=== PATIENT | male | born 1985 | race Caucasian/White ===

== ENCOUNTER 2019-05-17 11:37 | Inpatient (IN) | payer SELFPAY ==
[2019-05-17 11:41] VITALS: BP 147/84; PULSE 123; RESP 18; TEMP 36.8; O2SAT 97; BMI 31.0
--- NOTE | 2019-05-17 11:52 | W.ED.PSYCH ---
HPI - Psych General: Chief Complaint: Psychiatric Symptoms Stated Complaint: AMARIS Time Seen by Provider: 05/17/19 11:52 Source: patient Mode of arrival: ambulatory Limitations: no limitations History of Present Illness: HPI Narrative: 34 yo Male presents to ED with complaint of psychiatric symptoms. PFSH ED PFSH: Statuses (acute, chronic, etc) shown below reflect problem list status as previously entered and may not be historically accurate Social History Smoking and tobacco status: current every day smoker Coding Level of Care Code ED Research Laboratory Specialist for Demetrio Jacinto
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
[2019-05-17] MEDS: LORazepam 1 mg Tablet PO (13:27)
--- NOTE | 2019-05-17 13:28 | PC.NURSE ---
Pt suddenly became agitated and began hitting the code button. I entered the room and deactivated the code. As I turned to leave the pt again, hit the code button. This time the patient kept hitting the button saying that he wanted to leave. At that point, Pantera entered the room. The pt became even more agitated and ran to the corner of the room, yelling saying that he wanted to leave. Pantera asked the pt to remain claim and please stop hitting the code button. Pt ask to remain where he was upon which Pantera stated that he was fine to remain standing in the corner.
--- NOTE | 2019-05-17 13:30 | PC.NURSE ---
hospital sitter at bedside
[2019-05-17 13:37] LABS: Basophils % 0.2 %; Eosinophils % 0.2 %; Hematocrit 39.6 % (42.0-52.0); Hemoglobin 13.1 g/dL (11.7-16.6); Lymphocytes # 1.6 10^3/uL (0.8-4.8); Lymphocytes % 28.2 %; Mean Corpuscular HGB Conc 33.1 g/dL (30.0-36.0); Mean Corpuscular Hemoglobin 29.2 pg (28.0-34.0); Mean Corpuscular Volume 88.4 fL (80-94); Mean Platelet Volume 9.9 fL (7.4-10.4); Monocytes # 0.3 10^3/uL (0.2-0.9); Monocytes % 4.9 %; Neutrophils # 3.8 10^3/uL (1.8-7.7); Neutrophils % 66.3 %; Nucleated Red Blood Cells % 0 %; Platelet Count 248 10^3/cmm (130-400); Red Blood Count 4.48 10^6/uL (4.1-5.3); Red Cell Distribution Width 11.9 % (12.1-15.1); White Blood Count 5.8 10^3/uL (4.0-10.0)
[2019-05-17 13:56] LABS: Add Urine Microscopic? YES; Bilirubin Urine Neg (NEGATIVE); Blood Urine 3+ (Negative); Glucose Urine UA Norm (Normal); Ketones Urine 1+ (Negative); Leukocyte Esterase Urine Negative (Negative); Nitrate Urine Negative (Negative); Protein Urine Trace (Negative); Urine Appearance SL Hazy (CLEAR); Urine Color Yellow (Yellow); Urobilinogen Urine Norm (Negative)
[2019-05-17 14:06] LABS: Anion Gap 17.9 (5-19); Blood Urea Nitrogen 18 mg/dL (6-20); Calcium 10.4 mg/Dl (8.6-10.0); Carbon Dioxide 22 mmol/L (22-29); Chloride 101 mmol/L (98-107); Glomerular Filtration Rate 156.1 mL/min (90-130); Glucose 111 mg/dL (74-109); Potassium 3.9 mmol/L (3.5-5.1); Sodium 137 mmol/L (136-145); Thyroid Stimulating Hormone 1.32 uIU/mL (0.27-4.20)
[2019-05-17 14:10] LABS: Add Urine Culture? No; Bacteria Urine TRACE; Calcium Oxalate Crystals Urine 40-55 /hpf
[2019-05-17 14:13] LABS: Acetaminophen < 5.0 ug/mL (10-30); Alcohol Level < 10 mg/dL (0-10); Salicylate < 0.3 mg/dL (3-10)
[2019-05-17 14:14] LABS: Barbiturates Screen Urine Negative (Negative); Benzodiazepines Screen Urine Negative (Negative); Cocaine Screen Urine Negative (Negative); PCP Screen Urine Negative (Negative); THC Screen Urine Positive (Negative)
[2019-05-17 14:15] LABS: Amphetamines Screen Urine Positive (Negative)
[2019-05-17] MEDS: nicotine 21 mg Patch 1 PATCH TRANSDERMA (14:28)
[2019-05-17] MEDS: LORazepam 0.5 mg Tablet PO (15:13)
[2019-05-17 16:47] VITALS: BP 110/68; PULSE 98; O2SAT 95
--- NOTE | 2019-05-17 17:33 | PC.NURSE ---
Addendum entered by Devin Smith RN 05/18/19 09:31: Pt placed on restraint bed and transferred to NPU. Original Note: incident occurred on way to NPU. see event reports in paper charts
[2019-05-17] MEDS: LORazepam 2 mg/mL INJ 1 mL (19:21)
[2019-05-17] MEDS: ziprasidone 20 mg/mL SDV (19:22)
--- NOTE | 2019-05-17 19:59 | PC.NURSE ---
Nurse wants to wait for vitals to be done in the morning of 05/18/19.
[2019-05-18] MEDS: nicotine 2 mg Gum BUCCAL ×3 (04:18→12:07)
[2019-05-18 06:25] VITALS: BP 121/79; PULSE 78; RESP 20; TEMP 36.7; O2SAT 100
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
[2019-05-18] MEDS: OLANZapine ODT 5 MG TABLET PO (12:42)
[2019-05-18] MEDS: hyDROXYzine 25 mg Capsule 50 MG PO (12:42)
--- NOTE | 2019-05-18 12:46 | PC.NURSE ---
Addendum entered by Autumn Darling LPN 05/19/19 08:03: late entry 05/18/19 @ 9620 prn meds effective no further c/o anxiety/agitation. pt resting calmly in bed in room Original Note: PRN VISTARIL & ZYPREXA ZYDIS VISTARIL 50 MG GIVEN PO PER PT C/O ANXIETY. ZYPREXA ZYDIS 5 MG GIVEN PO PER PT C/O ANXIETY/AGITATION. COMPLIANT WITH MED ADMINISTRATION. HANDOUT ABOUT MEDS GIVEN TO PT PER PT REQUEST. WILL CONT TO MONITOR.
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
[2019-05-18 14:03] VITALS: BP 139/94; PULSE 120; RESP 20; TEMP 36.8; O2SAT 96
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
--- NOTE | 2019-05-18 15:32 | PC.SOCIAL ---
Per request of patient letter verifying his hospitalization was faxed to his public defenders office in [place], [place]. Contact there is Dolores White LCSW (P) [phone] (F) [phone]. Patient review letter prior to it being sent and verified release form sent by public defenders office.
[2019-05-18 20:47] VITALS: BP 115/69; PULSE 110; RESP 20; TEMP 36.8; O2SAT 97
[2019-05-19 06:00] VITALS: BP 131/79; PULSE 97; RESP 21; TEMP 36.6; O2SAT 98
--- NOTE | 2019-05-19 09:53 | PM.NPN ---
Subjective NPU Subjective: Interval history: Stephen presents today fairly emotional and upset after his conversation with his father. He reports that he is aware that he doesn't really have an option in regards to going to [place] turning himself in inserting his sentence but he is still struggling with how unfair he feels the process has been. There is a fairly lengthy discussion about the past 2 except since in situations like this in him taking control of the things that he can't control in managing the other things as best he can. Spoke with his father and he needs to follow through on this commitment or the legal ramifications will be stiff and significant. His piercing machine operator wants to have a telephone or video conference with them on Wednesday and we agreed that we would make that happen. Mental Status Exam MSE Comments: This is an obese white male with adequate dress, grooming and eye contact. No abnormal movements except for psychomotor retardation. Cooperative with exam in mild distress. Speech was decreased in rate and volume. Mood described as sad affect congruent. Thought process organized. Thought content: Patient denies suicidal or homicidal ideations, there were no delusions reported or noted, he denies any auditory or visual hallucinations. Attention and concentration were intact and memory was mostly reliable but none were formally tested. He is alert and oriented x3. Insight and judgment are improving. Vitals/I&O/Wt Last Vital Signs Temp 98.4 F 05/20/19 06:00 Pulse 90 05/20/19 06:00 Resp 18 05/20/19 06:00 BP 126/87 05/20/19 06:00 Pulse Ox 98 05/20/19 06:00 A&P Additional A&P Information Additional A&P Information: This is a 34-year-old white male with an endorsed psychiatric history consistent with ADHD but also reports of bipolar disorder who presents with a UDS positive for multiple drugs including amphetamine with thoughts of running off in hopes of avoiding his legal peril. 1. Continue current medication. Except: 2. Consider Lexapro for depression 3. Encourage individual group and milieu therapy. 4. Continue to 15-minute checks for safety. 5. Encourage discharge to court system to manage his responsibilities. 6. We will work to identify the whereabouts of the weapon prior to discharge. Involuntary Hold Information 96 Hour Hold: 96 Hour Involuntary Admission: Yes 96 Hour Hold Ending Date: 05/23/19 96 Hour Hold Ending Time: 17:00 Attestations NPU Medical Necessity Statement*: Inpatient hospitalization is medically necessary and the clinically appropriate intervention at this time. We will initiate and monitor medications and titrate to effect. Likely length of stay 3-5 days. Coding Level of Care Code Acute Manufacture Specialist for Demetrio Jacinto
[2019-05-19 14:00] VITALS: BP 147/93; PULSE 99; RESP 18; TEMP 36.7; O2SAT 99
[2019-05-19] MEDS: lithium carbonate 300 mg Capsule PO (17:12)
[2019-05-19 19:55] VITALS: BP 149/94; PULSE 96; RESP 17; TEMP 36.9; O2SAT 100
[2019-05-19 20:04] LABS: Free T4 Free Thyroxine 1.37 ng/dL (0.82-1.77); Thyroid Stimulating Hormone 1.25 uIU/mL (0.27-4.20)
[2019-05-20 06:00] VITALS: BP 126/87; PULSE 90; RESP 18; TEMP 36.9; O2SAT 98
[2019-05-20] MEDS: lithium carbonate 300 mg Capsule PO ×2 (09:03→17:02)
--- NOTE | 2019-05-20 10:01 | P.PN_ITS ---
Subjective NPU Subjective: Interval history: And presents today reporting greater insight into his situation and reporting a plan to follow through with his outdoor adventure instructor and father's recommendation that he go to [place] and turn himself in. It is unclear whether some of his presentation is malingering in nature or not however he has moments where he is categorically different than he is at other times. Most days while he is on the unit I seen him at least twice and there are times where he is behaving absolutely normal and other times where he is behaving bizarre. Today we had a normal contact later in the day with earlier in the day he was talking about people stealing his cigarettes, that the patients had gone off to [facility] last night etc. When I challenged the accuracy of his surgeons he then started talking about having vivid dreams and may be he had dreamt it. He reports that he sleeping okay and eating fine and reports that his hip seems to be feeling that her since the antibiotic. Mental Status Exam MSE Comments: This is an obese white male with adequate dress, grooming and eye contact. No abnormal movements except for psychomotor retardation. Cooperative with exam in mild distress. Speech was normal to increased in rate and volume. Mood described as better affect odd. Thought process organized. Thought content: Patient denies suicidal or homicidal ideations, there were no delusions reported or noted, he denies any auditory or visual hallucinations. Attention and concentration were intact and memory was mostly reliable but none were formally tested. He is alert and oriented x3. Insight and judgment are improving. Vitals/I&O/Wt Last Vital Signs Temp 98.4 F 05/20/19 06:00 Pulse 90 05/20/19 06:00 Resp 18 05/20/19 06:00 BP 126/87 05/20/19 06:00 Pulse Ox 98 05/20/19 06:00 A&P Additional A&P Information Additional A&P Information: This is a 34-year-old white male with an endorsed psychiatric history consistent with ADHD but also reports of bipolar disorder who presents with a UDS positive for multiple drugs including amphetamine with thoughts of running off in hopes of avoiding his legal peril. 1. Continue current medication. Except: 2. Consider Lexapro for depression or possibly Abilify for this questionable psychosis. 3. Encourage individual group and milieu therapy. 4. Continue to 15-minute checks for safety. 5. Encourage discharge to court system to manage his responsibilities. 6. We will work to identify the whereabouts of the weapon prior to discharge. Involuntary Hold Information 2 96 Hour Hold: 96 Hour Involuntary Admission: Yes 96 Hour Hold Ending Date: 05/23/19 96 Hour Hold Ending Time: 17:00 Attestations NPU Medical Necessity Statement*: Inpatient hospitalization is medically necessary and the clinically appropriate intervention at this time. We will initiate and monitor medications and titrate to effect. Likely length of stay 2-4 days. Coding Level of Care Code Acute Elementary Summer School Teacher for Demetrio Jacinto
[2019-05-20] MEDS: nicotine 2 mg Gum BUCCAL (11:20)
[2019-05-20] MEDS: hyDROXYzine 25 mg Capsule 50 MG PO (13:42)
--- NOTE | 2019-05-20 13:44 | PC.NURSE ---
PT TOLD STAFF THAT HE WAS FEELING ANXIOUS AND ASKED FOR MEDICATION FOR ANXIETY. ADMINISTERED VISTARIL 50 MG PO. WILL CONT TO MONITOR AND FOLLOW UP NEEDED
[2019-05-20 13:52] VITALS: BP 147/94; PULSE 100; RESP 20; TEMP 37.1; O2SAT 97
[2019-05-20 19:41] VITALS: BP 133/96; PULSE 130; RESP 21; TEMP 36.8; O2SAT 98
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
[2019-05-21] MEDS: haloperidol inj 5 mg/mL INJ 1 mL IM (00:28)
[2019-05-21] MEDS: diphenhydrAMINE 50 mg/mL SDV 1mL IM ×2 (00:29→01:13)
[2019-05-21] MEDS: LORazepam 2 mg/mL INJ 1 mL IM (00:30)
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
--- NOTE | 2019-05-21 01:36 | PC.NURSE ---
At approximately 0015 on 05/21/2019. Patient showing signs of increased paranoia and delusions. Patient walked to vending machine and hit machine and linen closet. Erratic behavior continues to escalate. Peter from [facility] and warehouse associate [place] present to assist in administration of intramuscular medications.This card writer hand administered Ativan 2mg /Haldol 5mg IM to patients right deltoid. Shawanda Bond LPN
[2019-05-21] MEDS: lithium carbonate 300 mg Capsule PO ×2 (09:19→17:10)
[2019-05-21] MEDS: hyDROXYzine 25 mg Capsule 50 MG PO (09:19)
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
[2019-05-21 14:00] VITALS: BP 133/96; RESP 21; TEMP 36.8; O2SAT 98
--- NOTE | 2019-05-21 14:22 | P.PN_ITS ---
Subjective NPU Subjective: Interval history: Stephen presents today reporting concerns that somehow the treatment team is sending medications to prevent to influence his behavior. At this point I concerns of this is somewhat manipulative behavior. He is otherwise tolerating the medication and denying any issues. He continues to endorse a plan to go to senior living as he has been advised to do and is supposed to be talking to his customer sales consultant tomorrow and he is open. He continues to have a very testing though relationship with his father for reasons that are unclear. He reports that his leg is feeling better since he had the injection/antibiotic.. Mental Status Exam MSE Comments: This is an obese white male with adequate dress, grooming and eye contact. No abnormal movements except for psychomotor retardation. Cooperative with exam in mild distress. Speech was normal to increased in rate and volume. Mood described as better affect odd. Thought process organized. Thought content: Patient denies suicidal or homicidal ideations, there were no delusions reported or noted, he denies any auditory or visual hallucinations. Attention and concentration were intact and memory was mostly reliable but none were formally tested. He is alert and oriented x3. Insight and judgment are improving. Vitals/I&O/Wt Last Vital Signs Temp 98.3 F 05/20/19 19:41 Pulse 130 H 05/20/19 19:41 Resp 21 H 05/20/19 19:41 BP 133/96 05/20/19 19:41 Pulse Ox 98 05/20/19 19:41 Weight last 48 hrs Weight 95.345 kg A&P Additional A&P Information Additional A&P Information: This is a 34-year-old white male with an endorsed psychiatric history consistent with ADHD but also reports of bipolar disorder who presents with a UDS positive for multiple drugs including amphetamine with thoughts of running off in hopes of avoiding his legal peril. 1. Continue current medication. Except: 2. Encourage individual group and milieu therapy. 3. Continue to 15-minute checks for safety. 4. Encourage discharge to court system to manage his responsibilities. Reported plan to talk to customer sales consultant tomorrow.. 5. Father reports the weapon issue was managed. Involuntary Hold Information 96 Hour Hold: 96 Hour Involuntary Admission: Yes 96 Hour Hold Ending Date: 05/23/19 96 Hour Hold Ending Time: 17:00 Attestations NPU Medical Necessity Statement*: Inpatient hospitalization is medically necessary and the clinically appropriate intervention at this time. We will initiate and monitor medications and titrate to effect. Definitive plan for discharge on Wednesday based on dad's work schedule to drive out to [place]. Likely length of stay 1-2 days. Coding Level of Care Code Acute Window Draper for Demetrio Jacinto
[2019-05-21 14:49] VITALS: BP 110/78; PULSE 100; RESP 20; TEMP 36.7; O2SAT 100
[2019-05-21 20:01] VITALS: BP 122/65; PULSE 87; RESP 17; TEMP 36.8; O2SAT 99
[2019-05-22] MEDS: trazodone 50 mg Tablet PO (00:26)
[2019-05-22 06:00] VITALS: BP 116/77; PULSE 77; RESP 17; TEMP 36.7; O2SAT 98
[2019-05-22] MEDS: lithium carbonate 300 mg Capsule PO ×2 (09:22→17:13)
[2019-05-22 14:00] VITALS: BP 119/88; PULSE 93; RESP 20; TEMP 36.8; O2SAT 99
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
[2019-05-22 16:55] VITALS: BP 119/88; PULSE 93; TEMP 36.8; O2SAT 93
== END 2019-05-22 18:53 | disposition home or self-care (01) | DRG 885 ==
LOC: ER 14:22 → NP 15:12
PROVIDERS: Admitting Provider Psychiatry & Neurology Psychiatry; Emergency Provider Family Medicine; Visit Provider Psychiatry & Neurology Psychiatry
DX: F31.9 Bipolar disorder, unspecified (principal); R45.851 Suicidal ideations; F17.210 Nicotine dependence, cigarettes, uncomplicated
CPT/HCPCS: 12345; 36415; 80048; 80307; 81003; 84439; 84443; 85025; 96372; 99284; A9270; J1200; J1630; J2060; J3486

== ENCOUNTER 2021-01-04 07:50 | Inpatient (IN) | payer SELFPAY ==
[2021-01-04 07:52] VITALS: BP 149/103; PULSE 83; RESP 16; TEMP 36.9; O2SAT 98; BMI 28.4
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
[2021-01-04] MEDS: LORazepam 2 mg Tablet PO (08:05)
--- NOTE | 2021-01-04 08:05 | XRR_ITS ---
PROCEDURE INFORMATION: Exam: XR Right Elbow Exam date and time: 01/04/2021 8:05 AM Age: 35 years old Clinical indication: Pain; Elbow; Right; Additional info: Elbow pain TECHNIQUE: Imaging protocol: XR Right elbow. Views: 1 or 2 views. COMPARISON: No relevant prior studies available. FINDINGS: Bones/joints: Normal. Soft tissues: There is soft tissue swelling around the elbow especially dorsally. XR/XR elbow RT 2V [id number] IMPRESSION: Soft tissue swelling. No fracture seen.
--- NOTE | 2021-01-04 08:05 | XRR_ITS ---
PROCEDURE INFORMATION: Exam: XR Chest Exam date and time: 01/04/2021 8:05 AM Age: 35 years old Clinical indication: Other: Chest pain TECHNIQUE: Imaging protocol: XR of the chest. Views: 1 view. COMPARISON: No relevant prior studies available. FINDINGS: Lungs: Unremarkable. No consolidation. Pleural spaces: Unremarkable. No pleural effusion. No pneumothorax. Heart/Mediastinum: Unremarkable. No cardiomegaly. Bones/joints: Unremarkable. XR/XR chest 1V portable [id number] IMPRESSION: No acute findings.
[2021-01-04 08:11] VITALS: BP 149/103; PULSE 77; RESP 17; O2SAT 98
[2021-01-04 09:14] LABS: Basophils % 0.4 %; Eosinophils # 0.1 10^3/uL (0.0-0.8); Eosinophils % 1.9 %; Hematocrit 38.6 % (42.0-52.0); Hemoglobin 12.9 g/dL (11.7-16.6); Lymphocytes % 18.1 %; Mean Corpuscular HGB Conc 33.4 g/dL (30.0-36.0); Mean Corpuscular Hemoglobin 31.9 pg (28.0-34.0); Mean Corpuscular Volume 95.5 fl (80-94); Mean Platelet Volume 9.9 fL (7.4-10.4); Monocytes # 0.4 10^3/uL (0.2-0.9); Monocytes % 7.2 %; Neutrophils # 3.83 10^3/uL (1.8-7.7); Neutrophils % 72.2 %; Nucleated Red Blood Cells % 0 %; Platelet Count 230 10^3/cmm (130-400); Red Blood Count 4.04 10^6/uL (4.1-5.3); Red Cell Distribution Width 12.4 % (12.1-15.1); White Blood Count 5.3 10^3/uL (4.0-10.0)
[2021-01-04 09:32] LABS: Alanine Aminotransferase 61 U/L (0-41); Alkaline Phosphatase 109 IU/L (40-130); Anion Gap 14.8 (5-19); Aspartate Amino Transferase 43 U/L (0-40); Blood Urea Nitrogen 11 mg/dL (6-20); Calcium 9.3 mg/dL (8.5-10.5); Carbon Dioxide 26 mmol/L (22-29); Chloride 100 mmol/L (98-107); Globulin 3.1 g/dL (1.3-4.6); Glomerular Filtration Rate 111.3 mL/min (90-130); Glucose 120 mg/dL (65-115); Lipase 22 U/L (13-60); Osmolality Calculated 285 mOsm/kg (285-295); Potassium 3.8 mmol/L (3.5-5.1); Salicylate 5.9 mg/dL (3-10); Sodium 137 mmol/L (136-145); Total Bilirubin 0.6 mg/dL (0.15-1.2); Total Protein 7.1 g/dL (6.6-8.7)
[2021-01-04 09:44] LABS: Acetaminophen < 5.0 ug/mL (10-30)
[2021-01-04] MEDS: LORazepam 1 mg Tablet PO (10:25)
[2021-01-04 11:10] VITALS: BP 154/101; PULSE 84; RESP 18; TEMP 36.7; O2SAT 100
[2021-01-04] MEDS: nicotine 2 mg Gum BUCCAL ×2 (11:58→15:35)
[2021-01-04 14:00] VITALS: BP 136/93; PULSE 97; RESP 17; TEMP 36.6; O2SAT 96
[2021-01-04] MEDS: ziprasidone hcl 40 mg Capsule PO (15:34)
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
[2021-01-04 21:39] VITALS: BP 132/84; PULSE 85; RESP 18; TEMP 36.7; O2SAT 97
[2021-01-04] MEDS: quetiapine 100 mg Tablet PO (21:50)
[2021-01-04] MEDS: OLANZapine 5 mg ODT PO (23:24)
--- NOTE | 2021-01-04 23:24 | PC.NURSE ---
Patient up disoriented walking halls. This nurse redirected patient back to room and reoriented patient, Patient was upset about not having evaluation done and was given Geodon. Anxious affect and increasing agitation observed. Patient offered food and fluids. Zyprexa 5 mg po given for this.
--- NOTE | 2021-01-05 03:06 | PC.NURSE ---
01/05/2021 0002 Patient resting on left side with eyes closed. No distress observed.
[2021-01-05 06:00] VITALS: RESP 15; BMI 26.6
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
[2021-01-05] MEDS: lithium carbonate 300 mg Capsule 1200 MG PO (09:09)
[2021-01-05] MEDS: levothyroxine 75 mcg Tablet PO (09:09)
[2021-01-05] MEDS: acetaminophen 325 mg Tablet 650 MG PO ×2 (11:29→22:13)
[2021-01-05] MEDS: paliperidone ER 6 mg Tablet PO (11:29)
[2021-01-05 14:00] VITALS: RESP 16; TEMP 36.9
[2021-01-05 20:44] VITALS: BP 112/68; PULSE 93; RESP 15; TEMP 36.8; O2SAT 98
[2021-01-05] MEDS: quetiapine 100 mg Tablet PO (22:14)
[2021-01-05] MEDS: OLANZapine 5 mg ODT PO (22:14)
[2021-01-06 06:00] VITALS: BP 144/93; PULSE 130; RESP 18; TEMP 37.2; O2SAT 99
[2021-01-06] MEDS: levothyroxine 75 mcg Tablet PO (08:39)
[2021-01-06] MEDS: paliperidone ER 6 mg Tablet PO (08:40)
[2021-01-06] MEDS: lithium carbonate 300 mg Capsule 1200 MG PO (08:40)
[2021-01-06 11:01] LABS: Amphetamines Screen Urine Positive (Negative); Barbiturates Screen Urine Negative (Negative); Benzodiazepines Screen Urine Positive (Negative); Cocaine Screen Urine Negative (Negative); Opiate Screen Urine Negative (Negative); PCP Screen Urine Negative (Negative); THC Screen Urine Negative (Negative)
[2021-01-06] MEDS: hyDROXYzine 25 mg Capsule 50 MG PO (12:09)
[2021-01-06] MEDS: nicotine 2 mg Gum BUCCAL (12:09)
--- NOTE | 2021-01-06 12:09 | PC.NURSE ---
Addendum entered by Autumn Darling LPN 01/06/21 13:26: prn med effective no further c/o anxiety Original Note: PRN VISTARIL 50 MG GIVEN PO PER PT C/O ANXIETY, PT SPECIFICALLY ASKING FOR ATIVAN PRN VISTARIL OFFERED & PT AGREEABLE TO TAKE. WILL CONT TO MONITOR
[2021-01-06 14:00] VITALS: BP 144/93; PULSE 110; RESP 18; TEMP 37.2; O2SAT 99
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
--- NOTE | 2021-01-06 18:22 | PC.RESP ---
SMOKING CESSATION INFORMATION SENT TO PATIENT.
[2021-01-06 21:34] VITALS: BP 118/82; PULSE 74; RESP 20; TEMP 36.7; O2SAT 95
[2021-01-06] MEDS: OLANZapine 5 mg ODT PO (21:46)
[2021-01-06] MEDS: quetiapine 100 mg Tablet PO (21:47)
[2021-01-06] MEDS: trazodone 50 mg Tablet PO (21:47)
[2021-01-07 06:00] VITALS: BP 112/64; PULSE 79; RESP 17; TEMP 36.8; O2SAT 97
--- NOTE | 2021-01-07 08:59 | P.HP_ITS ---
Providers/Chief Complaint Admitting Physician: Jermaine Ceron MD Chief Complaint: PSYCH EVAL; LEFT ELBOW PAIN HPI NPU History of Present Illness Stephen Galicia is a 35 year old male who presented to the emergency department with the following report: Meds NPU Home Medications Medication Instructions Recorded Confirmed Last Taken Type levothyroxine 75 mcg PO DAILY 01/04/21 01/04/21 01/03/21 History lithium carbonate 1,200 mg PO DAILY 01/04/21 01/04/21 01/03/21 History quetiapine 100 mg PO BEDTIME 01/04/21 01/04/21 01/03/21 History Allergies Allergy/AdvReac Type Severity Reaction Status Date / Time cefaclor [From Ceclor] Allergy ALGY-Hives Verified 05/17/19 11:50 metformin Allergy ALGY-Hives Verified 05/17/19 11:50 PFSH NPU PFSH: Medical History (Updated 01/04/21 @ 08:06 by Adam Zacarias MD) History of bipolar disorder Mental health disorder Social History Smoking and tobacco status: current every day smoker Vitals/I&O/Wt Last Vital Signs Temp 98.2 F 01/07/21 06:00 Pulse 79 01/07/21 06:00 Resp 17 01/07/21 06:00 BP 112/64 01/07/21 06:00 Pulse Ox 97 01/07/21 06:00 Weight last 48 hrs Weight 88.178 kg Data NPU : 01/04/21 09:03 01/04/21 09:03 Involuntary Hold Information 96 Hour Hold: 96 Hour Involuntary Admission: Yes 96 Hour Hold Ending Date: 01/10/21 96 Hour Hold Ending Time: 00:01 Coding Level of Care Code Acute Trigonometry Tutor for Demetrio Jacinto
[2021-01-07] MEDS: levothyroxine 75 mcg Tablet PO (10:12)
[2021-01-07] MEDS: paliperidone ER 6 mg Tablet PO ×2 (10:12→21:43)
[2021-01-07] MEDS: lithium carbonate 300 mg Capsule 1200 MG PO (10:12)
[2021-01-07] MEDS: nicotine 2 mg Gum BUCCAL (10:12)
--- NOTE | 2021-01-07 12:16 | NPU.GN ---
[facility] Group Topic:Thought Processing General Mood of Group: The patient come to group willingly. The patient was on time, good hygiene and properly dressed. The group discussed how the mind thinks and discussed negative thoughts and how we process those negative thoughts. The patient did participate in the group. The patient were all gave a thought table to be able to list specific negative thoughts and were able to come up with different ways to cope with those thoughts. The group was able to go outside for fresh air, which in turn helped the group to open up more. Information about the NPU was discussed, information about the routine for NPU, the doctor and nursing staff as well as social work instructor and how they each play a part in their care while here. 96 hr holds and 21 day holds were also explained as well.
[2021-01-07 14:00] VITALS: BP 119/78; PULSE 60; RESP 16; TEMP 36.1; O2SAT 97
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
[2021-01-07 20:05] VITALS: BP 139/89; PULSE 83; RESP 18; TEMP 36.8; O2SAT 98
--- NOTE | 2021-01-07 20:16 | P.CONIM_ITS ---
Providers/Reason For Consult Consulting Physician/Specialty*: Frase/Hospitalist Reason for Consult*: right elbow pain Requesting Physician: Dr Arango Attending Physician: Vincent Arango MD History of Present Illness History of Present Illness Stephen Galicia is a 35 year old male admitted on January 05 to the neuropsychiatric unit. He has a history of schizophrenia and substance use and was experiencing acute psychosis, homicidal and suicidal ideation. He had evidently had a fall the day prior to admission and sustained injury to his right elbow. Imaging studies were done in the emergency room did not show any evidence of fracture. He continues to have bruising and swelling to the right elbow and complained of pain particularly when he tries to sleep and rolls over on that arm. Pain is mild by his description. He has good range of motion. Bruising has gotten worse over the last couple of days. At the olecranon process there is more swelling than had been there previously. Hospitalist were asked to evaluate. In addition to this he complained of a sore on his neck that was bothering him as well as a sore in his mid back. These have been present for a while. Review of Systems Const: Denies: fever(s) or chills Card: Denies: chest pain (Previous right-sided chest pain is resolved) GI: Denies: nausea or vomiting Musc: Reports: extremity pain (when trying to sleep on right arm primarily, lesser degree with movement) and extremity swelling (right arm); Denies: limited range of motion Skin/Breast: Reports: sores (x 2 on back, one at neck and one mid back) Psych: Reports: anxiety Servando/Lymph: Reports: other (bruising to right arm) Meds/Allergies Home Medications and Allergies Home Medications Medication Instructions Recorded Confirmed Last Taken Type levothyroxine 75 mcg PO DAILY 01/04/21 01/04/21 01/03/21 History lithium carbonate 1,200 mg PO DAILY 01/04/21 01/04/21 01/03/21 History quetiapine 100 mg PO BEDTIME 01/04/21 01/04/21 01/03/21 History Allergies Allergy/AdvReac Type Severity Reaction Status Date / Time cefaclor [From Ceclor] Allergy ALGY-Hives Verified 05/17/19 11:50 metformin Allergy ALGY-Hives Verified 05/17/19 11:50 Current Medications Current Medications Generic Name Dose Route Start Last Admin Trade Name Freq PRN Reason Stop Dose Admin Acetaminophen 650 mg 01/04/21 11:10 01/05/21 22:13 Acetaminophen 325 Mg Tablet PO 650 mg Q4H PRN Administration MILD PAIN Hydroxyzine Pamoate 50 mg 01/04/21 11:10 01/06/21 12:09 Hydroxyzine 25 Mg Capsule PO 50 mg Q6H PRN Administration ANXIETY Levothyroxine Sodium 75 mcg 01/05/21 09:00 01/07/21 10:12 Levothyroxine 75 Mcg Tablet PO 75 mcg DAILY BOBBI Administration [place] Carbonate 1,200 mg 01/05/21 09:00 01/07/21 10:12 [place] Carbonate 300 Mg Capsule PO 1,200 mg DAILY BOBBI Administration Nicotine Polacrilex 2 mg 01/04/21 11:10 01/07/21 10:12 Nicotine 2 Mg Gum BUCCAL 2 mg Q2H PRN Administration NICOTINE WITHDRAWAL Olanzapine 5 mg 01/04/21 11:10 01/06/21 21:46 Olanzapine 5 Mg Odt PO 5 mg Q4H PRN Administration Agitation/Psychosis Quetiapine Fumarate 100 mg 01/04/21 21:00 01/06/21 21:47 Quetiapine 100 Mg Tablet PO 100 mg BEDTIME BOBBI Administration Trazodone HCl 50 mg 01/04/21 11:10 01/06/21 21:47 Trazodone 50 Mg Tablet PO 50 mg BEDTIME PRN Administration SLEEP Ziprasidone 40 mg 01/04/21 14:22 01/04/21 15:34 Ziprasidone Hcl 40 Mg Capsule PO 40 mg BID PRN Administration ANXIETY PFSH Acute PFSH: Medical History (Updated 01/07/21 @ 20:35 by Radha Marquez MD) Chronic schizophrenia History of bipolar disorder Surgical History (Updated 01/07/21 @ 20:32 by Radha Marquez MD) No history of previous surgery Social History (Updated 01/07/21 @ 20:32 by Radha Marquez MD) Smoking and tobacco status: current every day smoker Alcohol intake: current Substance/Drug Use: current Vitals/I&O/Wt Last Vital Signs Temp 98.2 F 01/07/21 20:05 Pulse 83 01/07/21 20:05 Resp 18 01/07/21 20:05 BP 139/89 01/07/21 20:05 Pulse Ox 98 01/07/21 20:05 Weight last 48 hrs Weight 88.178 kg Physical Exam Narrative: EXAM NARRATIVE: Patient is awake and alert, cooperative. Not acutely ill-appearing. Right arm is swollen from distal humerus to mid forearm. Large bruising noted to the medial side of the elbow and to a lesser degree laterally over the olecranon process. He has pain at the ends of range of motion but really good range of motion with internal and external rotation, extension, flexion. There is some point tenderness over the olecranon bursa which is fluid-filled. No warmth or erythema. Also tender over the lateral epicondyle but again good range of motion. 2+ radial pulses in the right arm, able to make a complete handgrip. On his back he has approximately 7 mm diameter scabbed wound mid back with some mild underlying induration but no fluctuance or drainage. Does look to have a hair follicle in the center of this. No surrounding erythema. On his lower neck on the right side he has approximately 2 cm diameter area of induration with central fluctuance and 3 mm thinned area with visible purulence underneath it. Mild overlying erythema, without any streaks extending beyond the area of induration, tender to palpation. This area was cleaned and the central area was prepped with a 23- gauge needle and approximately 8 mL of purulent bloody material was expressed without difficulty. No significant odor. He had a remaining approximately 1- 1/2 cm area of induration after this procedure. Data Labs: Other Labs: Laboratory Results WBC 5.3 10^3/uL (4.0- 10.0) 01/04/21 09:03 RBC 4.04 10^6/uL (4.1 -5.3) L 01/04/21 09:03 Hgb 12.9 g/dL (11.7-1 6.6) 01/04/21 09:03 Hct 38.6 % (42.0-52.0 ) L 01/04/21 09:03 MCV 95.5 fl (80-94) H 01/04/21 09:03 MCH 31.9 pg (28.0-34. 0) 01/04/21 09:03 MCHC 33.4 g/dL (30.0-3 6.0) 01/04/21 09:03 RDW 12.4 % (12.1-15.1 ) 01/04/21 09:03 Plt Count 230 10^3/cmm (130 -400) 01/04/21 09:03 MPV 9.9 fL (7.4-10.4) 01/04/21 09:03 Neut % (Auto) 72.2 % 01/04/21 09:03 Lymph % (Auto) 18.1 % 01/04/21 09:03 Ashley % (Auto) 7.2 % 01/04/21 09:03 Eos % (Auto) 1.9 % 01/04/21 09:03 Baso % (Auto) 0.4 % 01/04/21 09:03 Neut # (Auto) 3.83 10^3/uL (1.8 -7.7) 01/04/21 09:03 Lymph # (Auto) 1.0 10^3/uL (0.8- 4.8) 01/04/21 09:03 Ashley # (Auto) 0.4 10^3/uL (0.2- 0.9) 01/04/21 09:03 Eos # (Auto) 0.1 10^3/uL (0.0- 0.8) 01/04/21 09:03 Baso # (Auto) 0.0 10^3/uL (0.0- 0.1) 01/04/21 09:03 Nucleated RBC % (a uto) 0 % 01/04/21 09:03 Nucleated RBCs # 0.0 /100WBC 01/04/21 09:03 Sodium 137 mmol/L (136-1 45) 01/04/21 09:03 Potassium 3.8 mmol/L (3.5-5 .1) 01/04/21 09:03 Chloride 100 mmol/L (98-10 7) 01/04/21 09:03 Carbon Dioxide 26 mmol/L (22-29) 01/04/21 09:03 Anion Gap 14.8 (5-19) 01/04/21 09:03 BUN 11 mg/dL (6-20) 01/04/21 09:03 Creatinine 0.8 mg/dL (0.7-1. 2) 01/04/21 09:03 GFR Calculation 111.3 mL/min (90- 130) 01/04/21 09:03 Glucose 120 mg/dL (65-115 ) H 01/04/21 09:03 Calculated Osmolal ity 285 mOsm/kg (285- 295) 01/04/21 09:03 Calcium 9.3 mg/dL (8.5-10 .5) 01/04/21 09:03 Total Bilirubin 0.6 mg/dL (0.15-1 .2) 01/04/21 09:03 AST 43 U/L (0-40) H 01/04/21 09:03 ALT 61 U/L (0-41) H 01/04/21 09:03 Alkaline Phosphata se 109 IU/L (40-130) 01/04/21 09:03 Total Protein 7.1 g/dL (6.6-8.7 ) 01/04/21 09:03 Albumin 4.0 g/dL (3.5-5.2 ) 01/04/21 09:03 Globulin 3.1 g/dL (1.3-4.6 ) 01/04/21 09:03 Lipase 22 U/L (13-60) 01/04/21 09:03 Salicylates 5.9 mg/dL (3-10) 01/04/21 09:03 Urine Opiates Scre en Negative ng/mL (N egative) 01/06/21 10:13 Acetaminophen < 5.0 ug/mL (10-3 0) L 01/04/21 09:03 Ur Barbiturates Sc reen Negative ng/mL (N egative) 01/06/21 10:13 Ur Phencyclidine S crn Negative ng/mL (N egative) 01/06/21 10:13 Ur Amphetamines Sc reen Positive ng/mL (N egative) H 01/06/21 10:13 U Benzodiazepines Scrn Positive ng/mL (N egative) H 01/06/21 10:13 Urine Cocaine Scre en Negative ng/mL (N egative) 01/06/21 10:13 U Marijuana (THC) Screen Negative ng/mL (N egative) 01/06/21 10:13 Impressions Chest X-Ray 01/04/21 08:05 IMPRESSION: No acute findings. Elbow X-Ray 01/04/21 08:05 IMPRESSION: Soft tissue swelling. No fracture seen. A&P Assessment and plan (1) Elbow swelling: Sustained from a fall prior to admission, x-rays at admission showed no evidence of fracture. He has bruising associated with this and has developed some fluid in the olecranon bursa. He maintains good range of motion and pain is mild by his description. There is no significant warmth or erythema at the joint. At this point in time recommend supportive care with ice or heat, whichever provides the most relief. He is on lithium so NSAID therapy is not ideal but if was agreeable from a psychiatric standpoint could consider a dose ibuprofen 400 mg at bedtime. Can continue Tylenol as needed. Encourage patient to continue range of motion exercises and notify staff if any worsening pain, swelling at the tip of the elbow, redness or warmth or significant limitation in range of motion. Status: Acute Qualifiers: Laterality: right Qualified Code(s): M25.421 - Effusion, right elbow (2) Boil of neck: This was opened with a needle and pus was expressed. Recommend triple antibiotic ointment to both this wound and the one in his mid back twice a day. We will give him a 7-day course of doxycycline. Status: Acute Additional A&P Information Appreciate opportunity to assist in patient's care We will follow for a day or 2 to ensure no worsening Have ordered a CBC for in the morning Please contact if any new symptoms, particularly any fever or musculoskeletal changes as described above Consult Attestations Medical Necessity Statement: as per psychiatry Procedures Procedure Narrative Drainage of purulence from the neck: Area of lower posterior neck was cleaned with alcohol wipes. 23 gauge needle w as inserted into small central area with visual purulence underneath. Approximately 8 ml pus was easily expressed from the area. Remains indurated 1.5 cm diameter around this opening. Covered with clean gauze and tegaderm. Patient was anxious but tolerated procedure well. Dressings applied were shown to him so he would know what is on his neck. Coding Level of Care Code Acute Forder Operator for Demetrio Jacinto Diagnoses Elbow swelling M25.421 Laterality: right Boil of neck L02.12
[2021-01-07] MEDS: hyDROXYzine 25 mg Capsule 50 MG PO (21:43)
[2021-01-07] MEDS: quetiapine 100 mg Tablet PO (21:43)
[2021-01-08 06:00] VITALS: BP 116/75; PULSE 70; RESP 17; TEMP 37.2; O2SAT 98
[2021-01-08 08:09] LABS: Basophils % 0.4 %; Eosinophils # 0.3 10^3/uL (0.0-0.8); Eosinophils % 5.3 %; Hematocrit 41.2 % (42.0-52.0); Hemoglobin 13.4 g/dL (11.7-16.6); Lymphocytes # 1.1 10^3/uL (0.8-4.8); Mean Corpuscular HGB Conc 32.5 g/dL (30.0-36.0); Mean Corpuscular Hemoglobin 31.5 pg (28.0-34.0); Mean Corpuscular Volume 96.7 fl (80-94); Mean Platelet Volume 10.2 fL (7.4-10.4); Monocytes # 0.4 10^3/uL (0.2-0.9); Monocytes % 7.9 %; Neutrophils # 3.44 10^3/uL (1.8-7.7); Nucleated Red Blood Cells % 0 %; Platelet Count 204 10^3/cmm (130-400); Red Blood Count 4.26 10^6/uL (4.1-5.3); Red Cell Distribution Width 12.6 % (12.1-15.1); White Blood Count 5.3 10^3/uL (4.0-10.0)
[2021-01-08] MEDS: doxycycline 100 mg Tablet PO ×2 (09:11→17:37)
[2021-01-08] MEDS: nicotine 2 mg Gum BUCCAL ×2 (09:11→14:56)
[2021-01-08] MEDS: lithium carbonate 300 mg Capsule 1200 MG PO (09:11)
[2021-01-08] MEDS: paliperidone ER 6 mg Tablet 9 MG PO (09:12)
[2021-01-08] MEDS: levothyroxine 75 mcg Tablet PO (09:12)
[2021-01-08 14:00] VITALS: BP 126/82; PULSE 75; RESP 18; TEMP 37.2; O2SAT 98
[2021-01-08] MEDS: hyDROXYzine 25 mg Capsule 50 MG PO (14:54)
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
[2021-01-08] MEDS: neomycin-poly-bacitracin oint 28 gm 1 APPLIC TOPICAL (17:38)
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
[2021-01-08 20:42] VITALS: RESP 17
--- NOTE | 2021-01-08 21:00 | PC.NURSE ---
pt resting quietly with both eyes closed
[2021-01-08] MEDS: OLANZapine 5 mg ODT PO (21:06)
[2021-01-08] MEDS: quetiapine 100 mg Tablet PO (21:06)
--- NOTE | 2021-01-08 21:10 | PC.NURSE ---
pt requested to be given Zyprexa at HS, Zyprexa zydis 5mg po given.
--- NOTE | 2021-01-08 22:00 | PC.NURSE ---
pt resting quietly with both eyes closed
[2021-01-09 06:00] VITALS: BP 126/82; PULSE 75; RESP 17; TEMP 37.2; O2SAT 98
[2021-01-09] MEDS: nicotine 2 mg Gum BUCCAL (08:20)
[2021-01-09] MEDS: paliperidone ER 6 mg Tablet 9 MG PO (08:20)
[2021-01-09] MEDS: levothyroxine 75 mcg Tablet PO (08:20)
[2021-01-09] MEDS: lithium carbonate 300 mg Capsule 1200 MG PO (08:20)
[2021-01-09] MEDS: doxycycline 100 mg Tablet PO ×2 (08:21→17:23)
[2021-01-09 09:18] LABS: Basophils % 0.4 %; Eosinophils # 0.2 10^3/uL (0.0-0.8); Eosinophils % 5.2 %; Hematocrit 40.3 % (42.0-52.0); Hemoglobin 13.3 g/dL (11.7-16.6); Mean Corpuscular Hemoglobin 31.9 pg (28.0-34.0); Mean Corpuscular Volume 96.6 fl (80-94); Mean Platelet Volume 10.3 fL (7.4-10.4); Monocytes # 0.4 10^3/uL (0.2-0.9); Monocytes % 7.8 %; Neutrophils # 2.99 10^3/uL (1.8-7.7); Neutrophils % 64.6 %; Nucleated Red Blood Cells % 0 %; Platelet Count 191 10^3/cmm (130-400); Red Blood Count 4.17 10^6/uL (4.1-5.3); Red Cell Distribution Width 12.6 % (12.1-15.1); White Blood Count 4.6 10^3/uL (4.0-10.0)
[2021-01-09] MEDS: neomycin-poly-bacitracin oint 28 gm 1 APPLIC TOPICAL (10:17)
[2021-01-09 14:00] VITALS: BP 131/81; PULSE 91; RESP 18; TEMP 36.9; O2SAT 99
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
[2021-01-09] MEDS: quetiapine 100 mg Tablet PO (21:40)
[2021-01-09 22:00] VITALS: BP 131/81; PULSE 91; RESP 18; TEMP 36.9; O2SAT 99
--- NOTE | 2021-01-09 22:26 | PM.PN ---
Subjective Subjective: Interval history: He is doing quite well. Swelling is subsiding/resolving in the right arm/elbow. Bruising is resolving, yellowing in color. He is moving the arm well. No discomfort or swelling around the evacuated neck boil. Vitals/I&O/Wt Last Vital Signs Temp 98.4 F 01/09/21 22:00 Pulse 91 01/09/21 22:00 Resp 18 01/09/21 22:00 BP 131/81 01/09/21 22:00 Pulse Ox 99 01/09/21 22:00 Physical Exam Const: COMMON NORMALS: no acute distress and patient oriented x3 GENERAL APPEARANCE: cooperative ORIENTATION/CONSCIOUSNESS: Yes awake HENMT: COMMON NORMALS: oropharynx normal Neck/C-Spine: COMMON NORMALS: no JVD Resp: COMMON NORMALS: normal respiratory effort and clear to auscultation bilaterally AUSCULTATION: clear to auscultation bilaterally Cardio: COMMON NORMALS: no JVD, regular rhythm, S1 normal heart sound present, S2 normal heart sound present and No murmurs present (Cardio) RHYTHM: regular rhythm HEART SOUNDS: S1 normal heart sound present and S2 normal heart sound present GI: COMMON NORMALS: Normal to inspection, nondistended, normoactive bowel sounds present, Soft to palpation and non-tender PALPATION: Yes Soft to palpation Extremity: COMMON NORMALS: no joint enlargement and no pedal edema OTHER: Resolving swelling R elbow, bruising, no redness, warmth, moves/bends arm spontaneously Neuro: COMMON NORMALS: patient oriented x3 and moves all extremities Skin: COMMON NORMALS: no rashes or lesions noted GENERAL SKIN EXAM: no rashes or lesions noted Data : 01/09/21 08:59 01/04/21 09:03 Micro: Microbiology 01/08/21 17:05 Blood Culture - Preliminary Blood NEGATIVE TO DATE 01/08/21 17:02 Blood Culture - Preliminary Blood NEGATIVE TO DATE A&P Assessment and plan (1) Elbow swelling: Swelling is resolving. No growth on blood culture. Continue supportive care. Please have him follow-up with primary care provider after discharge for reassessment of resolution of symptoms. Discussed with him, he verbalized agreement and intention to follow-up. Understands to seek medical attention in case of any worsening of swelling, swelling any other joint, fever, or any other concerning symptoms that may suggest infection due to high risk of bloodstream infection. Encouraged him again against any IV drug use. Will be following up with [facility]. At this time will sign off, but please feel free to call with any questions, or reconsult for any additional issues. Status: Acute Qualifiers: Laterality: right Qualified Code(s): M25.421 - Effusion, right elbow (2) Boil of neck: Status post I&D. Doing very well. Complete on 7-day course of doxycycline. Status: Acute Attestations Medical Necessity Statement*: Continue further admission as per psychiatry. Coding Level of Care Code Acute Photogrammetric Surveyor for g Fwd Diagnoses Elbow swelling M25.421 Laterality: right Boil of neck L02.12
[2021-01-10 06:00] VITALS: BP 126/78; PULSE 80; RESP 16; TEMP 37.2; O2SAT 98
[2021-01-10] MEDS: lithium carbonate 300 mg Capsule 1200 MG PO (08:43)
[2021-01-10] MEDS: paliperidone ER 6 mg Tablet 9 MG PO (08:43)
[2021-01-10] MEDS: doxycycline 100 mg Tablet PO (08:43)
[2021-01-10] MEDS: paliperidone palmitate 234 mg Syringe IM (08:45)
[2021-01-10] MEDS: levothyroxine 75 mcg Tablet PO (08:45)
[2021-01-10 11:09] VITALS: BP 126/78; PULSE 80; RESP 16; TEMP 37.2; O2SAT 98
[2021-01-10 11:24] LABS: Basophils % 0.5 %; Eosinophils # 0.2 10^3/uL (0.0-0.8); Eosinophils % 5.4 %; Hematocrit 39.7 % (42.0-52.0); Hemoglobin 12.9 g/dL (11.7-16.6); Lymphocytes # 0.9 10^3/uL (0.8-4.8); Mean Corpuscular HGB Conc 32.5 g/dL (30.0-36.0); Mean Corpuscular Hemoglobin 31.7 pg (28.0-34.0); Mean Corpuscular Volume 97.5 fl (80-94); Mean Platelet Volume 10.8 fL (7.4-10.4); Monocytes # 0.4 10^3/uL (0.2-0.9); Monocytes % 8.4 %; Neutrophils # 2.86 10^3/uL (1.8-7.7); Neutrophils % 64.5 %; Nucleated Red Blood Cells % 0 %; Platelet Count 197 10^3/cmm (130-400); Red Blood Count 4.07 10^6/uL (4.1-5.3); Red Cell Distribution Width 12.6 % (12.1-15.1); White Blood Count 4.4 10^3/uL (4.0-10.0)
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
== END 2021-01-10 12:42 | disposition home or self-care (01) | DRG 885 ==
LOC: ER 08:46 → NP 11:21
PROVIDERS: Hospitalist; Internal Medicine; Admitting Provider Psychiatry & Neurology Psychiatry; Emergency Provider Emergency Medicine; Visit Provider Psychiatry & Neurology Child & Adolescent Psychiatry
DX: F20.9 Schizophrenia, unspecified (principal); R45.851 Suicidal ideations; F15.259 Other stimulant dependence with stimulant-induced psychotic disorder, unspecified; L02.12 Furuncle of neck; R45.850 Homicidal ideations; R07.9 Chest pain, unspecified; M25.421 Effusion, right elbow; M25.521 Pain in right elbow; W17.89XA Other fall from one level to another, initial encounter; F31.9 Bipolar disorder, unspecified; F17.210 Nicotine dependence, cigarettes, uncomplicated
CPT/HCPCS: 36415; 71045; 73070; 80053; 80306; 80307; 83690; 85025; 87040; 96372; 99285

== ENCOUNTER 2021-09-06 10:59 | Emergency (ER) | payer MEDICAID, SELFPAY ==
--- NOTE | 2021-09-06 11:04 | W.ED.GENADLT ---
Documented by User: Adam Zacarias MD 09/06/21 11:49 HPI - General Adult General: Chief complaint: Psychiatric Symptoms Stated complaint: BEHAVIORAL ISSUES Time Seen by Provider: 09/06/21 11:02 History of Present Illness: HPI: [36]yo patient w/ hx of bipolar disordr, schizophrenia BIBP for rest of behavior, statements of suicidal ideation and homicidal ideation. On arrival, the patient is AAOx3 and cooperative with my evaluation. No focal complaints of chest pain, shortness of breath, palpitations, N/V, focal GI/ complaints. Currently denies SI/HI. No complaints of hallucinations. Onset: acute on chronic Duration: ongoing Location: home Severity: severe Associated symptoms: Deny chest pain, dyspnea, nausea, rash, palpitations or vomiting Review of Systems Const: Denies: fever(s) or chills Eyes: Denies: change in vision ENMT: Denies: mouth pain Card: Denies: chest pain or palpitations Resp: Denies: dyspnea or non-productive cough GI: Denies: abdominal pain, nausea, vomiting or diarrhea : Denies: dysuria Musc: Denies: extremity pain Skin/Breast: Denies: rash or new lesions Neuro: Denies: weakness in extremities Psych: Reports: mood swings Servando/Lymph: Denies: easy bruising PFSH ED PFSH: Medical History Adjustment disorder with mixed disturbance of emotions and conduct Bipolar affect, depressed Bipolar disorder Chronic schizophrenia History of bipolar disorder Psychiatric care Schizophrenia Surgical History No history of previous surgery Social History Smoking and tobacco status: current every day smoker Alcohol intake: current Physical Exam Const: COMMON NORMALS: alert HENMT: COMMON NORMALS: atraumatic HEAD & SCALP: atraumatic MOUTH: moist mucous membranes not abnormal Eye: COMMON NORMALS: EOMs intact bilaterally and conjunctivae normal CONJUNCTIVA: Yes conjunctivae normal Neck/C-Spine: COMMON NORMALS: full ROM and supple Resp: COMMON NORMALS: normal respiratory effort and clear to auscultation bilaterally AUSCULTATION: clear to auscultation bilaterally Cardio: COMMON NORMALS: regular rate RATE: regular rate GI: COMMON NORMALS: Soft to palpation and non-tender PALPATION: Yes Soft to palpation Extremity: COMMON NORMALS: full ROM Neuro: SENSORIUM/ORIENTATION: Yes alert MOTOR EXAM: No Abnormal motor strength present and Other motor observations present (no focal motor deficits) Psych: COMMON NORMALS: speech normal SPEECH: Yes normal speech MOOD & AFFECT: Yes euthymic mood Course Vital Signs: Vital signs: Vital Signs Temperature 98.2 F 09/08/21 20:09 Pulse Rate 61 09/08/21 20:09 Respiratory Rate 16 09/08/21 20:09 Blood Pressure 123/81 09/08/21 20:09 Pulse Oximetry 96 09/08/21 20:09 MDM - General Adult Medical Decision Making [36]yo patient w/ hx of schizophrenia and bipolar disorder presenting for aggressive behavior, psychosis, and homcidality. HDS, exam within normal limit Thoughts are linear and organized, and the patient has no AH/VH, or HI. Clinically the patient displays no overt toxidrome; they are well appearing, with low suspicion for toxic ingestion given history and exam. Symptoms unlikely 2/2 anemia, hypothyroidism, infection, or ICH. Workup: CBC, CMP, Lipase, salicylate/tylenol, UDS, EKG, TSH/free T4, serum alcohol level Lab findings: wnl, +amphetamine in the urine [12:30pm] On reassessment, labs and workup wnl. Patient is hemodynamically stable with no acute medical complaints. Case discussed with psychiatric provider Dr. Acosta at [facility] psych inpatient with recommendation for transfer to other psych facility since patient has relatives that work in our [employer].; Disposition: Xfer to other psych facility Lab Data : 09/06/21 10:30 09/06/21 10:30 Laboratory Results WBC 6.9 10^3/uL (4.0-10.0) 09/06/21 10:30 RBC 4.73 10^6/uL (4.1-5.3) 09/06/21 10:30 Hgb 15.4 g/dL (11.7-16.6) 09/06/21 10:30 Hct 44.4 % (42.0-52.0) 09/06/21 10:30 MCV 93.9 fl (80-94) 09/06/21 10:30 MCH 32.6 pg (28.0-34.0) 09/06/21 10:30 MCHC 34.7 g/dL (30.0-36.0) 09/06/21 10:30 RDW 11.5 % (12.1-15.1) L 09/06/21 10:30 Plt Count 206 10^3/cmm (130-400) 09/06/21 10:30 MPV 10.7 fL (7.4-10.4) H 09/06/21 10:30 Neut % (Auto) 61.8 % 09/06/21 10:30 Lymph % (Auto) 26.9 % 09/06/21 10:30 [place] % (Auto) 9.9 % 09/06/21 10:30 Eos % (Auto) 1.0 % 09/06/21 10:30 Baso % (Auto) 0.3 % 09/06/21 10:30 Neut # (Auto) 4.23 10^3/uL (1.8-7.7) 09/06/21 10:30 Lymph # (Auto) 1.8 10^3/uL (0.8-4.8) 09/06/21 10:30 [place] # (Auto) 0.7 10^3/uL (0.2-0.9) 09/06/21 10:30 Eos # (Auto) 0.1 10^3/uL (0.0-0.8) 09/06/21 10:30 Baso # (Auto) 0.0 10^3/uL (0.0-0.1) 09/06/21 10:30 Nucleated RBC % (auto) 0 % 09/06/21 10:30 Nucleated RBCs # 0.0 /100WBC 09/06/21 10:30 Sodium 136 mmol/L (136-145) 09/06/21 10:30 Potassium 3.7 mmol/L (3.5-5.1) 09/06/21 10:30 Chloride 98 mmol/L (98-107) 09/06/21 10:30 Carbon Dioxide 18 mmol/L (22-29) L 09/06/21 10:30 Anion Gap 23.7 (5-19) H 09/06/21 10:30 BUN 18 mg/dL (6-20) 09/06/21 10:30 Creatinine 1.1 mg/dL (0.7-1.2) 09/06/21 10:30 GFR Calculation 76.6 mL/min (90-130) L 09/06/21 10:30 Glucose 99 mg/dL (65-115) 09/06/21 10:30 Calculated Osmolality 284 mOsm/kg (285-295) L 09/06/21 10:30 Calcium 9.6 mg/dL (8.5-10.5) 09/06/21 10:30 Total Bilirubin 0.9 mg/dL (0.15-1.2) 09/06/21 10:30 AST 47 U/L (0-40) H 09/06/21 10:30 ALT 31 U/L (0-41) 09/06/21 10:30 Alkaline Phosphatase 73 IU/L (40-130) 09/06/21 10:30 Total Protein 7.3 g/dL (6.6-8.7) 09/06/21 10:30 Albumin 4.8 g/dL (3.5-5.2) 09/06/21 10:30 Globulin 2.5 g/dL (1.3-4.6) 09/06/21 10:30 Lipase 17 U/L (13-60) 09/06/21 10:30 Vitamin B12 431 pg/mL (232-1245) 09/09/21 14:35 Folate 15.1 ng/mL (4.5-32.2) 09/09/21 14:35 TSH 2.88 uIU/mL (0.27-4.20) 09/06/21 10:30 Free T4 1.33 ng/dL (0.82-1.77) 09/06/21 10:30 Salicylates < 0.3 mg/dL (3-10) L 09/06/21 10:30 Urine Opiates Screen Negative ng/mL (Negative) 09/06/21 11:15 Acetaminophen < 5.0 ug/mL (10-30) L 09/06/21 10:30 Ur Barbiturates Screen Negative ng/mL (Negative) 09/06/21 11:15 Ur Phencyclidine Scrn Negative ng/mL (Negative) 09/06/21 11:15 Ur Amphetamines Screen Positive ng/mL (Negative) H 09/06/21 11:15 U Benzodiazepines Scrn Negative ng/mL (Negative) 09/06/21 11:15 Urine Cocaine Screen Negative ng/mL (Negative) 09/06/21 11:15 U Marijuana (THC) Screen Negative ng/mL (Negative) 09/06/21 11:15 Ethyl Alcohol < 10 mg/dL (0-10) 09/06/21 10:30 RPR Nonreactive (Nonreactive) 09/09/21 14:35 SARS-CoV-2 Ag (Rapid) Negative (Negative) 09/06/21 11:15 Discharge Plan Discharge Patient Disposition: Home Clinical Impression: Psychosis, Aggressive behavior, Homicidal ideation, Chronic schizophrenia Condition: Stable Prescriptions: No Action lithium carbonate 600 mg capsule 1,200 mg PO DAILY 0RF levothyroxine 50 mcg tablet 50 mcg PO DAILY 0RF eszopiclone 3 mg tablet 3 mg PO BEDTIME 0RF Vyvanse 30 mg capsule 30 mg PO DAILY 0RF asenapine maleate 5 mg Tablet, Sublingual 5 mg SUBLINGUAL BEDTIME 0RF Caplyta 42 mg Capsule 42 mg PO DAILY 0RF Discharge Orders: Discharge ED (Routine); Ordered 09/09/21 Ordered By: Talat Anderson Patient Instructions: Opioid Safety Activity Restrictions/Additional Instructions: Follow-up through [facility] as planned. Dr. Ceron will make arrangements for you to have refills of your medications. Sign Out Sign Out Data: Patient Sign Out occurred on 09/08/21 at 07:01. Patient's care was discussed, and care was transferred from to Talat Anderson DO. Coding Level of Care Code ED Perforator Typist for Chg Fwd Exam Comprehensive Documented by User: Zan Fuentes MD 09/11/21 20:41 HPI - General Adult General: Chief complaint: Psychiatric Symptoms Stated complaint: BEHAVIORAL ISSUES Time Seen by Provider: 09/06/21 11:02 [facility] ED PFSH: Medical History Adjustment disorder with mixed disturbance of emotions and conduct Bipolar affect, depressed Bipolar disorder Chronic schizophrenia History of bipolar disorder Psychiatric care Schizophrenia Surgical History No history of previous surgery Social History Smoking and tobacco status: current every day smoker Alcohol intake: current Course Vital Signs: Vital signs: Vital Signs Temperature 98.2 F 09/08/21 20:09 Pulse Rate 61 09/08/21 20:09 Respiratory Rate 16 09/08/21 20:09 Blood Pressure 123/81 09/08/21 20:09 Pulse Oximetry 96 09/08/21 20:09 MDM - General Adult Medical Decision Making [36]yo patient w/ hx of schizophrenia and bipolar disorder presenting for aggressive behavior, psychosis, and homcidality. HDS, exam within normal limit Thoughts are linear and organized, and the patient has no AH/VH, or HI. Clinically the patient displays no overt toxidrome; they are well appearing, with low suspicion for toxic ingestion given history and exam. Symptoms unlikely 2/2 anemia, hypothyroidism, infection, or ICH. Workup: CBC, CMP, Lipase, salicylate/tylenol, UDS, EKG, TSH/free T4, serum alcohol level Lab findings: wnl, +amphetamine in the urine [12:30pm] On reassessment, labs and workup wnl. Patient is hemodynamically stable with no acute medical complaints. Case discussed with psychiatric provider Dr. Acsota at [facility] psych inpatient with recommendation for transfer to other psych facility since patient has relatives that work in our [employer].; Disposition: Xfer to other psych facility [place] on [place] of 09/07 pending continued assessment and looking for placement. There are affidavits endorsing patient's bizarre behavior and potential threats of self-harm and harm to others. In examination of the patient overall condition remains similar. The patient offers poor insight into severity of symptoms and largely dismisses the fact that law enforcement was involved. I spoke with Dr. Ceron of the psychiatry service who came and assessed the patient. He continues to recommend inpatient admission however we are unable to admit the patient here due to family member being on unit. We will continue to search for accepting facility. Based on ED evaluation at this point there is no obvious condition that would preclude patient from inpatient management of psychiatric concerns. Additionally given psychiatric history in combination with overall clinical picture as well as psychiatry service assessment patient I do feel that he requires inpatient evaluation. Zan Fuentes MD Emergency Medicine Lab Data : 09/06/21 10:30 09/06/21 10:30 Laboratory Results WBC 6.9 10^3/uL (4.0-10.0) 09/06/21 10:30 RBC 4.73 10^6/uL (4.1-5.3) 09/06/21 10:30 Hgb 15.4 g/dL (11.7-16.6) 09/06/21 10:30 Hct 44.4 % (42.0-52.0) 09/06/21 10:30 MCV 93.9 fl (80-94) 09/06/21 10:30 MCH 32.6 pg (28.0-34.0) 09/06/21 10:30 MCHC 34.7 g/dL (30.0-36.0) 09/06/21 10:30 RDW 11.5 % (12.1-15.1) L 09/06/21 10:30 Plt Count 206 10^3/cmm (130-400) 09/06/21 10:30 MPV 10.7 fL (7.4-10.4) H 09/06/21 10:30 Neut % (Auto) 61.8 % 09/06/21 10:30 Lymph % (Auto) 26.9 % 09/06/21 10:30 [place] % (Auto) 9.9 % 09/06/21 10:30 Eos % (Auto) 1.0 % 09/06/21 10:30 Baso % (Auto) 0.3 % 09/06/21 10:30 Neut # (Auto) 4.23 10^3/uL (1.8-7.7) 09/06/21 10:30 Lymph # (Auto) 1.8 10^3/uL (0.8-4.8) 09/06/21 10:30 [place] # (Auto) 0.7 10^3/uL (0.2-0.9) 09/06/21 10:30 Eos # (Auto) 0.1 10^3/uL (0.0-0.8) 09/06/21 10:30 Baso # (Auto) 0.0 10^3/uL (0.0-0.1) 09/06/21 10:30 Nucleated RBC % (auto) 0 % 09/06/21 10:30 Nucleated RBCs # 0.0 /100WBC 09/06/21 10:30 Sodium 136 mmol/L (136-145) 09/06/21 10:30 Potassium 3.7 mmol/L (3.5-5.1) 09/06/21 10:30 Chloride 98 mmol/L (98-107) 09/06/21 10:30 Carbon Dioxide 18 mmol/L (22-29) L 09/06/21 10:30 Anion Gap 23.7 (5-19) H 09/06/21 10:30 BUN 18 mg/dL (6-20) 09/06/21 10:30 Creatinine 1.1 mg/dL (0.7-1.2) 09/06/21 10:30 GFR Calculation 76.6 mL/min (90-130) L 09/06/21 10:30 Glucose 99 mg/dL (65-115) 09/06/21 10:30 Calculated Osmolality 284 mOsm/kg (285-295) L 09/06/21 10:30 Calcium 9.6 mg/dL (8.5-10.5) 09/06/21 10:30 Total Bilirubin 0.9 mg/dL (0.15-1.2) 09/06/21 10:30 AST 47 U/L (0-40) H 09/06/21 10:30 ALT 31 U/L (0-41) 09/06/21 10:30 Alkaline Phosphatase 73 IU/L (40-130) 09/06/21 10:30 Total Protein 7.3 g/dL (6.6-8.7) 09/06/21 10:30 Albumin 4.8 g/dL (3.5-5.2) 09/06/21 10:30 Globulin 2.5 g/dL (1.3-4.6) 09/06/21 10:30 Lipase 17 U/L (13-60) 09/06/21 10:30 Vitamin B12 431 pg/mL (232-1245) 09/09/21 14:35 Folate 15.1 ng/mL (4.5-32.2) 09/09/21 14:35 TSH 2.88 uIU/mL (0.27-4.20) 09/06/21 10:30 Free T4 1.33 ng/dL (0.82-1.77) 09/06/21 10:30 Salicylates < 0.3 mg/dL (3-10) L 09/06/21 10:30 Urine Opiates Screen Negative ng/mL (Negative) 09/06/21 11:15 Acetaminophen < 5.0 ug/mL (10-30) L 09/06/21 10:30 Ur Barbiturates Screen Negative ng/mL (Negative) 09/06/21 11:15 Ur Phencyclidine Scrn Negative ng/mL (Negative) 09/06/21 11:15 Ur Amphetamines Screen Positive ng/mL (Negative) H 09/06/21 11:15 U Benzodiazepines Scrn Negative ng/mL (Negative) 09/06/21 11:15 Urine Cocaine Screen Negative ng/mL (Negative) 09/06/21 11:15 U Marijuana (THC) Screen Negative ng/mL (Negative) 09/06/21 11:15 Ethyl Alcohol < 10 mg/dL (0-10) 09/06/21 10:30 RPR Nonreactive (Nonreactive) 09/09/21 14:35 SARS-CoV-2 Ag (Rapid) Negative (Negative) 09/06/21 11:15 Discharge Plan Discharge Patient Disposition: Home Clinical Impression: Psychosis, Aggressive behavior, Homicidal ideation, Chronic schizophrenia Condition: Stable Prescriptions: No Action lithium carbonate 600 mg capsule 1,200 mg PO DAILY 0RF levothyroxine 50 mcg tablet 50 mcg PO DAILY 0RF eszopiclone 3 mg tablet 3 mg PO BEDTIME 0RF Vyvanse 30 mg capsule 30 mg PO DAILY 0RF asenapine maleate 5 mg Tablet, Sublingual 5 mg SUBLINGUAL BEDTIME 0RF Caplyta 42 mg Capsule 42 mg PO DAILY 0RF Discharge Orders: Discharge ED (Routine); Ordered 09/09/21 Ordered By: Talat Anderson Patient Instructions: Opioid Safety Activity Restrictions/Additional Instructions: Follow-up through [facility] as planned. Dr. Ceron will make arrangements for you to have refills of your medications. Sign Out Sign Out Data: Patient Sign Out occurred on 09/08/21 at 07:01. Patient's care was discussed, and care was transferred from to Talat Anderson DO. Coding Level of Care Code ED Perforator Typist for Chg Fwd Exam Comprehensive Documented by User: Nikita Oliver DO 09/08/21 01:26 HPI - General Adult General: Chief complaint: Psychiatric Symptoms Stated complaint: BEHAVIORAL ISSUES Time Seen by Provider: 09/06/21 11:02 PFSH ED PFSH: Medical History Adjustment disorder with mixed disturbance of emotions and conduct Bipolar affect, depressed Bipolar disorder Chronic schizophrenia History of bipolar disorder Psychiatric care Schizophrenia Surgical History No history of previous surgery Social History Smoking and tobacco status: current every day smoker Alcohol intake: current Course Vital Signs: Vital signs: Vital Signs Temperature 98.2 F 09/08/21 20:09 Pulse Rate 61 09/08/21 20:09 Respiratory Rate 16 09/08/21 20:09 Blood Pressure 123/81 09/08/21 20:09 Pulse Oximetry 96 09/08/21 20:09 MDM - General Adult Medical Decision Making [36]yo patient w/ hx of schizophrenia and bipolar disorder presenting for aggressive behavior, psychosis, and homcidality. HDS, exam within normal limit Thoughts are linear and organized, and the patient has no AH/VH, or HI. Clinically the patient displays no overt toxidrome; they are well appearing, with low suspicion for toxic ingestion given history and exam. Symptoms unlikely 2/2 anemia, hypothyroidism, infection, or ICH. Workup: CBC, CMP, Lipase, salicylate/tylenol, UDS, EKG, TSH/free T4, serum alcohol level Lab findings: wnl, +amphetamine in the urine [12:30pm] On reassessment, labs and workup wnl. Patient is hemodynamically stable with no acute medical complaints. Case discussed with psychiatric provider Dr. Acosta at [facility] psych inpatient with recommendation for transfer to other psych facility since patient has relatives that work in our [employer].; Disposition: Xfer to other psych facility [place] on [place] of 09/07 pending continued assessment and looking for placement. There are affidavits endorsing patient's bizarre behavior and potential threats of self-harm and harm to others. In examination of the patient overall condition remains similar. The patient offers poor insight into severity of symptoms and largely dismisses the fact that law enforcement was involved. I spoke with Dr. Ceron of the psychiatry service who came and assessed the patient. He continues to recommend inpatient admission however we are unable to admit the patient here due to family member being on unit. We will continue to search for accepting facility. Based on ED evaluation at this point there is no obvious condition that would preclude patient from inpatient management of psychiatric concerns. Additionally given psychiatric history in combination with overall clinical picture as well as psychiatry service assessment patient I do feel that he requires inpatient evaluation. Zan Fuentes MD Emergency Medicine 09/08/2021 @ 0124: Patient has become restless. He is asking for something for anxiety, and to help him sleep. He remains nonthreatening. 20 mg Zydus was ordered for the patient to help him rest. He remains medically stable. We have not yet been able to obtain an inpatient neuro psychiatry bed for this patient due to limited bed availability, etc. Psychiatry will evaluate this patient again this morning. Lab Data : 09/06/21 10:30 09/06/21 10:30 Laboratory Results WBC 6.9 10^3/uL (4.0-10.0) 09/06/21 10:30 RBC 4.73 10^6/uL (4.1-5.3) 09/06/21 10:30 Hgb 15.4 g/dL (11.7-16.6) 09/06/21 10:30 Hct 44.4 % (42.0-52.0) 09/06/21 10:30 MCV 93.9 fl (80-94) 09/06/21 10:30 MCH 32.6 pg (28.0-34.0) 09/06/21 10:30 MCHC 34.7 g/dL (30.0-36.0) 09/06/21 10:30 RDW 11.5 % (12.1-15.1) L 09/06/21 10:30 Plt Count 206 10^3/cmm (130-400) 09/06/21 10:30 MPV 10.7 fL (7.4-10.4) H 09/06/21 10:30 Neut % (Auto) 61.8 % 09/06/21 10:30 Lymph % (Auto) 26.9 % 09/06/21 10:30 [place] % (Auto) 9.9 % 09/06/21 10:30 Eos % (Auto) 1.0 % 09/06/21 10:30 Baso % (Auto) 0.3 % 09/06/21 10:30 Neut # (Auto) 4.23 10^3/uL (1.8-7.7) 09/06/21 10:30 Lymph # (Auto) 1.8 10^3/uL (0.8-4.8) 09/06/21 10:30 [place] # (Auto) 0.7 10^3/uL (0.2-0.9) 09/06/21 10:30 Eos # (Auto) 0.1 10^3/uL (0.0-0.8) 09/06/21 10:30 Baso # (Auto) 0.0 10^3/uL (0.0-0.1) 09/06/21 10:30 Nucleated RBC % (auto) 0 % 09/06/21 10:30 Nucleated RBCs # 0.0 /100WBC 09/06/21 10:30 Sodium 136 mmol/L (136-145) 09/06/21 10:30 Potassium 3.7 mmol/L (3.5-5.1) 09/06/21 10:30 Chloride 98 mmol/L (98-107) 09/06/21 10:30 Carbon Dioxide 18 mmol/L (22-29) L 09/06/21 10:30 Anion Gap 23.7 (5-19) H 09/06/21 10:30 BUN 18 mg/dL (6-20) 09/06/21 10:30 Creatinine 1.1 mg/dL (0.7-1.2) 09/06/21 10:30 GFR Calculation 76.6 mL/min (90-130) L 09/06/21 10:30 Glucose 99 mg/dL (65-115) 09/06/21 10:30 Calculated Osmolality 284 mOsm/kg (285-295) L 09/06/21 10:30 Calcium 9.6 mg/dL (8.5-10.5) 09/06/21 10:30 Total Bilirubin 0.9 mg/dL (0.15-1.2) 09/06/21 10:30 AST 47 U/L (0-40) H 09/06/21 10:30 ALT 31 U/L (0-41) 09/06/21 10:30 Alkaline Phosphatase 73 IU/L (40-130) 09/06/21 10:30 Total Protein 7.3 g/dL (6.6-8.7) 09/06/21 10:30 Albumin 4.8 g/dL (3.5-5.2) 09/06/21 10:30 Globulin 2.5 g/dL (1.3-4.6) 09/06/21 10:30 Lipase 17 U/L (13-60) 09/06/21 10:30 Vitamin B12 431 pg/mL (232-1245) 09/09/21 14:35 Folate 15.1 ng/mL (4.5-32.2) 09/09/21 14:35 TSH 2.88 uIU/mL (0.27-4.20) 09/06/21 10:30 Free T4 1.33 ng/dL (0.82-1.77) 09/06/21 10:30 Salicylates < 0.3 mg/dL (3-10) L 09/06/21 10:30 Urine Opiates Screen Negative ng/mL (Negative) 09/06/21 11:15 Acetaminophen < 5.0 ug/mL (10-30) L 09/06/21 10:30 Ur Barbiturates Screen Negative ng/mL (Negative) 09/06/21 11:15 Ur Phencyclidine Scrn Negative ng/mL (Negative) 09/06/21 11:15 Ur Amphetamines Screen Positive ng/mL (Negative) H 09/06/21 11:15 U Benzodiazepines Scrn Negative ng/mL (Negative) 09/06/21 11:15 Urine Cocaine Screen Negative ng/mL (Negative) 09/06/21 11:15 U Marijuana (THC) Screen Negative ng/mL (Negative) 09/06/21 11:15 Ethyl Alcohol < 10 mg/dL (0-10) 09/06/21 10:30 RPR Nonreactive (Nonreactive) 09/09/21 14:35 SARS-CoV-2 Ag (Rapid) Negative (Negative) 09/06/21 11:15 Discharge Plan Discharge Patient Disposition: Home Clinical Impression: Psychosis, Aggressive behavior, Homicidal ideation, Chronic schizophrenia Condition: Stable Prescriptions: No Action lithium carbonate 600 mg capsule 1,200 mg PO DAILY 0RF levothyroxine 50 mcg tablet 50 mcg PO DAILY 0RF eszopiclone 3 mg tablet 3 mg PO BEDTIME 0RF Vyvanse 30 mg capsule 30 mg PO DAILY 0RF asenapine maleate 5 mg Tablet, Sublingual 5 mg SUBLINGUAL BEDTIME 0RF Caplyta 42 mg Capsule 42 mg PO DAILY 0RF Discharge Orders: Discharge ED (Routine); Ordered 09/09/21 Ordered By: Talat Anderson Patient Instructions: Opioid Safety Activity Restrictions/Additional Instructions: Follow-up through [facility] as planned. Dr. Ceron will make arrangements for you to have refills of your medications. Sign Out Sign Out Data: Patient Sign Out occurred on 09/08/21 at 07:01. Patient's care was discussed, and care was transferred from to Talat Anderson DO. Coding Level of Care Code ED Perforator Typist for Chg Fwd Exam Comprehensive Documented by User: Talat Anderson DO 09/09/21 17:20 HPI - General Adult General: Chief complaint: Psychiatric Symptoms Stated complaint: BEHAVIORAL ISSUES Time Seen by Provider: 09/06/21 11:02 [facility] ED PFSH: Medical History Adjustment disorder with mixed disturbance of emotions and conduct Bipolar affect, depressed Bipolar disorder Chronic schizophrenia History of bipolar disorder Psychiatric care Schizophrenia Surgical History No history of previous surgery Social History Smoking and tobacco status: current every day smoker Alcohol intake: current Course Vital Signs: Vital signs: Vital Signs Temperature 98.2 F 09/08/21 20:09 Pulse Rate 61 09/08/21 20:09 Respiratory Rate 16 09/08/21 20:09 Blood Pressure 123/81 09/08/21 20:09 Pulse Oximetry 96 09/08/21 20:09 MDM - General Adult Medical Decision Making [36]yo patient w/ hx of schizophrenia and bipolar disorder presenting for aggressive behavior, psychosis, and homcidality. HDS, exam within normal limit Thoughts are linear and organized, and the patient has no AH/VH, or HI. Clinically the patient displays no overt toxidrome; they are well appearing, with low suspicion for toxic ingestion given history and exam. Symptoms unlikely 2/2 anemia, hypothyroidism, infection, or ICH. Workup: CBC, CMP, Lipase, salicylate/tylenol, UDS, EKG, TSH/free T4, serum alcohol level Lab findings: wnl, +amphetamine in the urine [12:30pm] On reassessment, labs and workup wnl. Patient is hemodynamically stable with no acute medical complaints. Case discussed with psychiatric provider Dr. Acosta at [facility] psych inpatient with recommendation for transfer to other psych facility since patient has relatives that work in our [employer].; Disposition: Xfer to other psych facility [place] of [place]/07 pending continued assessment and looking for placement. There are affidavits endorsing patient's bizarre behavior and potential threats of self-harm and harm to others. In examination of the patient overall condition remains similar. The patient offers poor insight into severity of symptoms and largely dismisses the fact that law enforcement was involved. I spoke with Dr. Ceron of the psychiatry service who came and assessed the patient. He continues to recommend inpatient admission however we are unable to admit the patient here due to family member being on unit. We will continue to search for accepting facility. Based on ED evaluation at this point there is no obvious condition that would preclude patient from inpatient management of psychiatric concerns. Additionally given psychiatric history in combination with overall clinical picture as well as psychiatry service assessment patient I do feel that he requires inpatient evaluation. Zan Fuentes MD Emergency Medicine 09/08/2021 @ 0124: Patient has become restless. He is asking for something for anxiety, and to help him sleep. He remains nonthreatening. 20 mg Zydus was ordered for the patient to help him rest. He remains medically stable. We have not yet been able to obtain an inpatient neuro psychiatry bed for this patient due to limited bed availability, etc. Psychiatry will evaluate this patient again this morning. 09/09/2021 5:19 PM We been trying throughout the day to find placement for the patient and consulted the head of the QUALITY IMPROVEMENT COORDINATOR (RN) luz maria as well as Dr. Ceron she has been kind enough to see the patient in the ER and assist in his care. We initially worked up a plan where we might be able to admit him to the [facility] here there was a conflict with admitting him here and by policy we could not admit him. Dr. Ceron called back and stated now he has decided to discharge the patient releasing from the 96-hour hold he will make arrangements for outpatient medicine and follow-up through [facility]. Medical Records I reviewed the patient's medical records. Lab Data I reviewed the patient's lab results. : 09/06/21 10:30 09/06/21 10:30 Laboratory Results WBC 6.9 10^3/uL (4.0-10.0) 09/06/21 10:30 RBC 4.73 10^6/uL (4.1-5.3) 09/06/21 10:30 Hgb 15.4 g/dL (11.7-16.6) 09/06/21 10:30 Hct 44.4 % (42.0-52.0) 09/06/21 10:30 MCV 93.9 fl (80-94) 09/06/21 10:30 MCH 32.6 pg (28.0-34.0) 09/06/21 10:30 MCHC 34.7 g/dL (30.0-36.0) 09/06/21 10:30 RDW 11.5 % (12.1-15.1) L 09/06/21 10:30 Plt Count 206 10^3/cmm (130-400) 09/06/21 10:30 MPV 10.7 fL (7.4-10.4) H 09/06/21 10:30 Neut % (Auto) 61.8 % 09/06/21 10:30 Lymph % (Auto) 26.9 % 09/06/21 10:30 [place] % (Auto) 9.9 % 09/06/21 10:30 Eos % (Auto) 1.0 % 09/06/21 10:30 Baso % (Auto) 0.3 % 09/06/21 10:30 Neut # (Auto) 4.23 10^3/uL (1.8-7.7) 09/06/21 10:30 Lymph # (Auto) 1.8 10^3/uL (0.8-4.8) 09/06/21 10:30 [place] # (Auto) 0.7 10^3/uL (0.2-0.9) 09/06/21 10:30 Eos # (Auto) 0.1 10^3/uL (0.0-0.8) 09/06/21 10:30 Baso # (Auto) 0.0 10^3/uL (0.0-0.1) 09/06/21 10:30 Nucleated RBC % (auto) 0 % 09/06/21 10:30 Nucleated RBCs # 0.0 /100WBC 09/06/21 10:30 Sodium 136 mmol/L (136-145) 09/06/21 10:30 Potassium 3.7 mmol/L (3.5-5.1) 09/06/21 10:30 Chloride 98 mmol/L (98-107) 09/06/21 10:30 Carbon Dioxide 18 mmol/L (22-29) L 09/06/21 10:30 Anion Gap 23.7 (5-19) H 09/06/21 10:30 BUN 18 mg/dL (6-20) 09/06/21 10:30 Creatinine 1.1 mg/dL (0.7-1.2) 09/06/21 10:30 GFR Calculation 76.6 mL/min (90-130) L 09/06/21 10:30 Glucose 99 mg/dL (65-115) 09/06/21 10:30 Calculated Osmolality 284 mOsm/kg (285-295) L 09/06/21 10:30 Calcium 9.6 mg/dL (8.5-10.5) 09/06/21 10:30 Total Bilirubin 0.9 mg/dL (0.15-1.2) 09/06/21 10:30 AST 47 U/L (0-40) H 09/06/21 10:30 ALT 31 U/L (0-41) 09/06/21 10:30 Alkaline Phosphatase 73 IU/L (40-130) 09/06/21 10:30 Total Protein 7.3 g/dL (6.6-8.7) 09/06/21 10:30 Albumin 4.8 g/dL (3.5-5.2) 09/06/21 10:30 Globulin 2.5 g/dL (1.3-4.6) 09/06/21 10:30 Lipase 17 U/L (13-60) 09/06/21 10:30 Vitamin B12 431 pg/mL (232-1245) 09/09/21 14:35 Folate 15.1 ng/mL (4.5-32.2) 09/09/21 14:35 TSH 2.88 uIU/mL (0.27-4.20) 09/06/21 10:30 Free T4 1.33 ng/dL (0.82-1.77) 09/06/21 10:30 Salicylates < 0.3 mg/dL (3-10) L 09/06/21 10:30 Urine Opiates Screen Negative ng/mL (Negative) 09/06/21 11:15 Acetaminophen < 5.0 ug/mL (10-30) L 09/06/21 10:30 Ur Barbiturates Screen Negative ng/mL (Negative) 09/06/21 11:15 Ur Phencyclidine Scrn Negative ng/mL (Negative) 09/06/21 11:15 Ur Amphetamines Screen Positive ng/mL (Negative) H 09/06/21 11:15 U Benzodiazepines Scrn Negative ng/mL (Negative) 09/06/21 11:15 Urine Cocaine Screen Negative ng/mL (Negative) 09/06/21 11:15 U Marijuana (THC) Screen Negative ng/mL (Negative) 09/06/21 11:15 Ethyl Alcohol < 10 mg/dL (0-10) 09/06/21 10:30 RPR Nonreactive (Nonreactive) 09/09/21 14:35 SARS-CoV-2 Ag (Rapid) Negative (Negative) 09/06/21 11:15 Discharge Plan Discharge Patient Disposition: Home Clinical Impression: Psychosis, Aggressive behavior, Homicidal ideation, Chronic schizophrenia Condition: Stable Prescriptions: No Action lithium carbonate 600 mg capsule 1,200 mg PO DAILY 0RF levothyroxine 50 mcg tablet 50 mcg PO DAILY 0RF eszopiclone 3 mg tablet 3 mg PO BEDTIME 0RF Vyvanse 30 mg capsule 30 mg PO DAILY 0RF asenapine maleate 5 mg Tablet, Sublingual 5 mg SUBLINGUAL BEDTIME 0RF Caplyta 42 mg Capsule 42 mg PO DAILY 0RF Discharge Orders: Discharge ED (Routine); Ordered 09/09/21 Ordered By: Talat Anderson Patient Instructions: Opioid Safety Activity Restrictions/Additional Instructions: Follow-up through [facility] as planned. Dr. Ceron will make arrangements for you to have refills of your medications. Sign Out Sign Out Data: Patient Sign Out occurred on 09/08/21 at 07:01. Patient's care was discussed, and care was transferred from to Talat Anderson DO. Coding Level of Care Code ED Perforator Typist for Demetrio Fwd Exam Comprehensive
[2021-09-06 11:07] VITALS: BP 163/106; PULSE 110; RESP 18; TEMP 36.8; O2SAT 98; BMI 32.5
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
[2021-09-06 11:27] VITALS: BP 146/90; PULSE 94; RESP 16; O2SAT 98
[2021-09-06 11:29] LABS: Basophils % 0.3 %; Eosinophils # 0.1 10^3/uL (0.0-0.8); Hematocrit 44.4 % (42.0-52.0); Hemoglobin 15.4 g/dL (11.7-16.6); Lymphocytes # 1.8 10^3/uL (0.8-4.8); Lymphocytes % 26.9 %; Mean Corpuscular HGB Conc 34.7 g/dL (30.0-36.0); Mean Corpuscular Hemoglobin 32.6 pg (28.0-34.0); Mean Corpuscular Volume 93.9 fl (80-94); Mean Platelet Volume 10.7 fL (7.4-10.4); Monocytes # 0.7 10^3/uL (0.2-0.9); Monocytes % 9.9 %; Neutrophils # 4.23 10^3/uL (1.8-7.7); Neutrophils % 61.8 %; Nucleated Red Blood Cells % 0 %; Platelet Count 206 10^3/cmm (130-400); Red Blood Count 4.73 10^6/uL (4.1-5.3); Red Cell Distribution Width 11.5 % (12.1-15.1); White Blood Count 6.9 10^3/uL (4.0-10.0)
--- NOTE | 2021-09-06 11:29 | PC.NURSE ---
Denies SI or thts of harm to others, Denies anxiety, but appears anxious, quick short answers, hands moving constantly. Provided snack of sandwich & chips, cooperative w lab draw.
--- NOTE | 2021-09-06 11:31 | ECG_ITS ---
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 Measurements Intervals [place] Rate: 83 P: 66 CO: 155 QRS: 84 QRSD: 114 T: 6 QT: 355 QTc: 418 Interpretive Statements SINUS RHYTHM WITH SINUS ARRHYTHMIA MODERATE INTRAVENTRICULAR CONDUCTION DELAY [110+ ms QRS DURATION] No previous ECG available for comparison Electronically Signed On 09-07-2021 8:12:35 CDT by Castro Ernst M.D. [email or web address] [id number]
[2021-09-06 11:41] LABS: Amphetamines Screen Urine Positive (Negative); Barbiturates Screen Urine Negative (Negative); Benzodiazepines Screen Urine Negative (Negative); Cocaine Screen Urine Negative (Negative); Opiate Screen Urine Negative (Negative); PCP Screen Urine Negative (Negative); THC Screen Urine Negative (Negative)
[2021-09-06 11:51] LABS: SARS Covid-2 Antigen Negative (Negative)
[2021-09-06 11:56] LABS: Alanine Aminotransferase 31 U/L (0-41); Albumin Level 4.8 g/dL (3.5-5.2); Alkaline Phosphatase 73 IU/L (40-130); Anion Gap 23.7 (5-19); Aspartate Amino Transferase 47 U/L (0-40); Blood Urea Nitrogen 18 mg/dL (6-20); Calcium 9.6 mg/dL (8.5-10.5); Carbon Dioxide 18 mmol/L (22-29); Chloride 98 mmol/L (98-107); Free T4 Free Thyroxine 1.33 ng/dL (0.82-1.77); Globulin 2.5 g/dL (1.3-4.6); Glomerular Filtration Rate 76.6 mL/min (90-130); Glucose 99 mg/dL (65-115); Lipase 17 U/L (13-60); Osmolality Calculated 284 mOsm/kg (285-295); Potassium 3.7 mmol/L (3.5-5.1); Sodium 136 mmol/L (136-145); Thyroid Stimulating Hormone 2.88 uIU/mL (0.27-4.20); Total Bilirubin 0.9 mg/dL (0.15-1.2); Total Protein 7.3 g/dL (6.6-8.7)
[2021-09-06 12:15] LABS: Acetaminophen < 5.0 ug/mL (10-30); Alcohol Level < 10 mg/dL (0-10); Salicylate < 0.3 mg/dL (3-10)
[2021-09-06] MEDS: LORazepam 1 mg Tablet PO (12:57)
[2021-09-06] MEDS: LORazepam 2 mg/mL INJ 1 mL IM (13:37)
[2021-09-06 17:50] VITALS: BP 159/88; PULSE 64; RESP 16; TEMP 36.9; O2SAT 96
[2021-09-06 19:04] VITALS: BP 136/83; PULSE 88; RESP 20; O2SAT 96
[2021-09-07 00:55] VITALS: BP 107/79; PULSE 85; RESP 18; TEMP 36.7; O2SAT 98
--- NOTE | 2021-09-07 01:14 | PC.NURSE ---
ana [facility] have no beds [facility] no answer faxed paperwork to Gwendolyn @ [phone] [place]@[phone] and [facility]@ [phone] awaiting call back
[2021-09-07 04:22] VITALS: BP 126/83; PULSE 84; RESP 16; O2SAT 98
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
[2021-09-07] MEDS: LORazepam 1 mg Tablet PO (18:28)
[2021-09-07 19:00] VITALS: BP 136/72; PULSE 76; RESP 20; O2SAT 98
[2021-09-08] MEDS: OLANZapine 10 mg ODT 20 MG PO (01:22)
[2021-09-08 01:30] VITALS: BP 137/77; PULSE 71; RESP 20; TEMP 37.2; O2SAT 98
--- NOTE | 2021-09-08 07:48 | PC.NURSE ---
Pt's father called for placement update. We discussed the possibility of dc'ing to father, but he reports his understanding is that we are still looking for placement & that is his preference.
[2021-09-08 08:00] VITALS: BP 122/76; PULSE 66; RESP 16; TEMP 36.6; O2SAT 96
[2021-09-08 13:00] VITALS: BP 126/61; PULSE 71; RESP 16; TEMP 36.5; O2SAT 94
[2021-09-08] MEDS: LORazepam 2 mg Tablet PO (16:15)
[2021-09-08 18:15] VITALS: BP 147/86; PULSE 76; RESP 18; TEMP 36.6; O2SAT 96
--- NOTE | 2021-09-08 18:27 | P.NPUPN_ITS ---
Subjective NPU Subjective: Patient is a Sustenna change from yesterday saying that his issue is that he lost his glasses and that his dad knows that when he loses his glasses that he gets really upset. We had a extended discussion about him losing control when he loses his glasses being unreasonable and that his 96-hour hold favor or assertions things he has inpatient services would be a reasonable process to consider medication adjustments as other services that may be needed. Mental Status Exam MSE Comments: This is an overweight versus obese white male in hospital scrubs with adequate grooming and fair eye contact.? No abnormal movements except for mild psychomotor retardation.? Mostly cooperative with exam in mild distress.? Speech is decreased rate and volume.? Mood described as I am good and you should just let me go now, affect irritable. ? Thought process organized.? Thought content: Patient denies suicidal or homicidal ideations.? He denies delusions though he is guarded, he denies auditory and visual hallucinations.? Attention and concentration were intact and memory was mostly reliable, but limited, but none were formally tested.? He is alert and oriented x3.? Insight and judgment are impaired, impulse control is impaired. Vitals/I&O/Wt Last Vital Signs Temp 98.2 F 09/08/21 20:09 Pulse 61 09/08/21 20:09 Resp 16 09/08/21 20:09 BP 123/81 09/08/21 20:09 Pulse Ox 96 09/08/21 20:09 Data NPU : 09/06/21 10:30 09/06/21 10:30 A&P Assessment and plan (1) Psychosis: Status: Acute (2) Aggressive behavior: Status: Acute (3) Homicidal ideation: Status: Acute (4) Chronic schizophrenia: Status: Chronic Plan This is a 36-year-old white male with a long history of mental health issues with active addiction who presented to the emergency department after escalating aggressive acts at home here on a 96-hour hold without aggression here awaiting placement in a psychiatric facility. 1.? Continue current medication.? 2.? Patient appropriate for inpatient hospitalization however cannot be excepted here due to father being a nurse on the unit. Involuntary Hold Information 96 Hour Hold: 96 Hour Involuntary Admission: Yes 96 Hour Hold Ending Date: 01/10/21 96 Hour Hold Ending Time: 00:01 Attestations NPU Medical Necessity Statement*: N/A.? Please see primary team note for medical necessity, however agree with need for continued inpatient psychiatric transfer. Coding Level of Care Code Acute Roller Mill Operator for Demetrio Garciad Diagnoses Psychosis F29 Aggressive behavior R46.89 Homicidal ideation R45.850 Chronic schizophrenia F20.9
--- NOTE | 2021-09-08 18:30 | PC.NURSE ---
Has been calm & cooperative this shift. Medicated w ativan once for c/o anxiety. He has a good appetite and has been friendly to staff.
[2021-09-08 20:09] VITALS: BP 123/81; PULSE 61; RESP 16; TEMP 36.8; O2SAT 96
--- NOTE | 2021-09-08 20:11 | PC.NURSE ---
moved pt off stretcher on to a hospital bed given warm blankets. no needs at this time
[2021-09-08] MEDS: acetaminophen 500 mg Tablet 1000 MG PO (23:01)
--- NOTE | 2021-09-09 06:27 | P.NPUHP_ITS ---
Providers/Chief Complaint Chief Complaint: BEHAVIORAL ISSUES HPI NPU History of Present Illness Stephen Galicia is a 36 year old male Meds NPU Home Medications Medication Instructions Recorded Confirmed Last Taken Type lithium carbonate 600 mg capsule 1,200 mg PO DAILY 01/04/21 09/06/21 01/03/21 History asenapine maleate 5 mg sublingual 5 mg SUBLINGUAL BEDTIME 09/06/21 09/06/21 Unk nown History tablet eszopiclone 3 mg tablet 3 mg PO BEDTIME 09/06/21 09/06/21 Unknown History levothyroxine 50 mcg tablet 50 mcg PO DAILY 09/06/21 09/06/21 Unknown History lisdexamfetamine 30 mg capsule 30 mg PO DAILY 09/06/21 09/06/21 Unknown History (Vyvanse) lumateperone 42 mg capsule 42 mg PO DAILY 09/06/21 09/06/21 Unknown History (Caplyta) Allergies Allergy/AdvReac Type Severity Reaction Status Date / Time cefaclor [From Ceclor] Allergy ALGY-Hives Verified 09/06/21 11:06 metformin Allergy ALGY-Hives Verified 09/06/21 11:06 PFSH NPU PFSH: Medical History Adjustment disorder with mixed disturbance of emotions and conduct Bipolar affect, depressed Bipolar disorder Chronic schizophrenia History of bipolar disorder Psychiatric care Schizophrenia Surgical History No history of previous surgery Social History Smoking and tobacco status: current every day smoker Alcohol intake: current Vitals/I&O/Wt Last Vital Signs Temp 98.2 F 09/08/21 20:09 Pulse 61 09/08/21 20:09 Resp 16 09/08/21 20:09 BP 123/81 09/08/21 20:09 Pulse Ox 96 09/08/21 20:09 Data NPU : 09/06/21 10:30 09/06/21 10:30 Involuntary Hold Information 96 Hour Hold: 96 Hour Involuntary Admission: Yes 96 Hour Hold Ending Date: 01/10/21 96 Hour Hold Ending Time: 00:01 Coding Level of Care Code Acute Marketing Programs Manager for Demetrio Jacinto
--- NOTE | 2021-09-09 08:56 | PC.NURSE ---
Discussed possible transfer to [facility] & they state they have no self-pay beds.
[2021-09-09] MEDS: nicotine 21 mg Patch 1 PATCH TRANSDERMA (10:49)
[2021-09-09] MEDS: LORazepam 2 mg Tablet PO (13:27)
[2021-09-09 15:23] LABS: Rapid Plasma Reagin Syphilis Nonreactive (Nonreactive)
[2021-09-09 15:54] LABS: Folate Level 15.1 ng/mL (4.5-32.2)
--- NOTE | 2021-09-09 17:14 | DCPLANNER ---
manager pacu had message to look for placement for patient. manager pacu called the following facilities: [facility]: declined [facility]: declined [facility]: left voicemail at 2:31 [facility] - declined [facility] - no self pay beds [facility] no beds [place] [facility] - no beds [facility] - declined [facility] - no beds [facility] - no beds [facility] - [facility] - no beds
[2021-09-09 18:07] LABS: Vitamin B12 431 pg/mL (232-1245)
== END 2021-09-09 17:45 | disposition home or self-care (01) ==
PROVIDERS: Emergency Medicine; Emergency Provider Family Medicine
DX: F25.0 Schizoaffective disorder, bipolar type (principal); R45.850 Homicidal ideations
CPT/HCPCS: 80053; 80306; 80307; 82607; 82746; 83690; 84439; 84443; 85025; 86592; 87426; 93005; 96372; 99285; J2060

== ENCOUNTER 2021-10-19 19:21 | Emergency (ER) | payer MEDICAID, SELFPAY ==
[2021-10-19 19:32] VITALS: BP 154/102; PULSE 90; RESP 18; TEMP 36.7; O2SAT 96; BMI 31.0
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
[2021-10-19 19:59] LABS: Basophils % 0.3 %; Eosinophils # 0.2 10^3/uL (0.0-0.8); Eosinophils % 3.2 %; Lymphocytes # 1.9 10^3/uL (0.8-4.8); Lymphocytes % 30.7 %; Mean Corpuscular Volume 91.5 fl (80-94); Mean Platelet Volume 10.2 fL (7.4-10.4); Monocytes # 0.5 10^3/uL (0.2-0.9); Monocytes % 7.5 %; Neutrophils # 3.57 10^3/uL (1.8-7.7); Nucleated Red Blood Cells % 0 %; Platelet Count 260 10^3/cmm (130-400); Red Blood Count 4.37 10^6/uL (4.1-5.3); White Blood Count 6.2 10^3/uL (4.0-10.0)
[2021-10-19 20:00] VITALS: BP 154/102; PULSE 90; RESP 18; TEMP 36.7; O2SAT 96
[2021-10-19 20:20] LABS: Alanine Aminotransferase 40 U/L (0-41); Albumin Level 4.8 g/dL (3.5-5.2); Alkaline Phosphatase 89 IU/L (40-130); Anion Gap 13.9 (5-19); Aspartate Amino Transferase 49 U/L (0-40); Blood Urea Nitrogen 13 mg/dL (6-20); Calcium 9.4 mg/dL (8.5-10.5); Carbon Dioxide 24 mmol/L (22-29); Chloride 103 mmol/L (98-107); Globulin 2.9 g/dL (1.3-4.6); Glomerular Filtration Rate 154.2 mL/min (90-130); Glucose 101 mg/dL (65-115); Osmolality Calculated 284 mOsm/kg (285-295); Potassium 3.9 mmol/L (3.5-5.1); Sodium 137 mmol/L (136-145); Total Bilirubin 0.5 mg/dL (0.15-1.2); Total Protein 7.7 g/dL (6.6-8.7)
[2021-10-19 20:25] LABS: Acetaminophen < 5.0 ug/mL (10-30); Salicylate < 0.3 mg/dL (3-10)
[2021-10-19 21:04] LABS: Lithium 0.1 mmol/L (0.6-1.2)
[2021-10-19 21:30] VITALS: BP 147/79; PULSE 84; RESP 18; TEMP 36.7; O2SAT 96
[2021-10-19 21:51] LABS: Adenovirus Not Detected (NOT DETECT); Chlamydia Pneumoniae Not Detected (NOT DETECT); Coronavirus 229E,HKU1,NL63,OC4 Not Detected (NOT DETECT); Human Metapneumovirus Not Detected (NOT DETECT); Human Rhinovirus/Enterovirus Not Detected (NOT DETECT); Influenza A Not Detected (NOT DETECT); Influenza A H1 Not Detected (NOT DETECT); Influenza A H1-2009 Not Detected (NOT DETECT); Influenza A H3 Not Detected (NOT DETECT); Influenza B Not Detected (NOT DETECT); Mycoplasma Pneumoniae Not Detected (NOT DETECT); Parainfluenza Virus Type 1 Not Detected (NOT DETECT); Parainfluenza Virus Type 2 Not Detected (NOT DETECT); Parainfluenza Virus Type 3 Not Detected (NOT DETECT); Parainfluenza Virus Type 4 Not Detected (NOT DETECT); Respiratory Syncytial Virus A Not Detected (NOT DETECT); Respiratory Syncytial Virus B Not Detected (NOT DETECT); SARS-COV-2 Not Detected (NOT DETECT)
[2021-10-19] MEDS: hyDROXYzine 25 mg Capsule PO (22:05)
[2021-10-19 22:19] LABS: Amphetamines Screen Urine Positive (Negative); Barbiturates Screen Urine Negative (Negative); Benzodiazepines Screen Urine Negative (Negative); Cocaine Screen Urine Negative (Negative); Opiate Screen Urine Negative (Negative); PCP Screen Urine Negative (Negative); THC Screen Urine Negative (Negative)
[2021-10-20 00:55] VITALS: BP 135/75; PULSE 78; RESP 18; TEMP 36.7; O2SAT 97
[2021-10-20 02:16] VITALS: BP 125/70; PULSE 76; RESP 18; TEMP 36.7; O2SAT 97
[2021-10-20 04:06] VITALS: BP 135/78; PULSE 71; RESP 18; TEMP 36.7; O2SAT 97
[2021-10-20 05:55] VITALS: BP 119/78; PULSE 76; RESP 18; TEMP 36.7; O2SAT 96
--- NOTE | 2021-10-20 08:50 | PC.PHAR ---
pt unable to verify all medications-medications entered are some of the meds the pt states he takes and what ext med history shows -notes are made in the pharmacy comments
--- NOTE | 2021-10-20 13:29 | PC.NURSE ---
This nurse went into the patients room. Patient was agitated and stated that he wanted a cigarette, this nurse offered a nicotine patch, patient refused. He stated that he didn't want to talk to this nurse. This nurse vacated the room.
[2021-10-20] MEDS: LORazepam 2 mg/mL INJ 1 mL IVP (13:56)
[2021-10-20] MEDS: ziprasidone 20 mg/mL SDV IM ×2 (13:56→15:26)
--- NOTE | 2021-10-20 14:00 | PC.NURSE ---
Patient ran out of the room and towards the exit. Patient hit the door yelling at staff that he wanted to leave and a cigarette. Staff walked patient back to his room. Doctor discussed with the patient policy of the facility and asked if the patient would want some medication. Patient was agreeable and received the medication with no issue's.
[2021-10-20] MEDS: LORazepam 2 mg/mL INJ 1 mL IM (15:26)
[2021-10-20 19:30] VITALS: BP 125/94; PULSE 71; RESP 16; O2SAT 97
[2021-10-21 01:04] VITALS: BP 132/78; PULSE 68; RESP 17; TEMP 36.7; O2SAT 98
--- NOTE | 2021-10-21 01:05 | PC.NURSE ---
Spoke with intake from [facility] and they were looking at pts info for poss admission, they wanted [facility] faxed to them, and stated they would call back, UDS faxed
[2021-10-21] MEDS: nicotine 21 mg Patch 1 PATCH TRANSDERMA (04:48)
[2021-10-21] MEDS: ALPRAZolam 0.5 mg Tablet 1 MG PO (04:50)
[2021-10-21 07:18] VITALS: BP 132/101; PULSE 95; RESP 18; O2SAT 95
[2021-10-21] MEDS: ibuprofen 800 mg tablet PO (10:11)
[2021-10-21] MEDS: LORazepam 2 mg/mL INJ 1 mL IM (12:07)
[2021-10-21] MEDS: ziprasidone 20 mg/mL SDV IM (12:07)
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
[2021-10-21 17:15] VITALS: BP 136/68; PULSE 76; RESP 18; O2SAT 96
[2021-10-21 19:00] VITALS: BP 124/69; PULSE 76; RESP 18; TEMP 36.7; O2SAT 96
[2021-10-21 20:00] VITALS: BP 124/69; PULSE 76; RESP 18; TEMP 36.7; O2SAT 96
[2021-10-21] MEDS: LORazepam 1 mg Tablet PO (20:53)
[2021-10-21] MEDS: OLANZapine 5 mg TABLET PO (20:53)
[2021-10-21 23:00] VITALS: BP 124/69; PULSE 76; RESP 18; TEMP 36.7; O2SAT 96
[2021-10-22] MEDS: LORazepam 2 mg/mL INJ 1 mL IM (08:00)
[2021-10-22] MEDS: ziprasidone 20 mg/mL SDV IM (08:00)
--- NOTE | 2021-10-22 11:02 | ECG_ITS ---
[facility] Test Date: 2021-10-22 Pat Name: Stephen Galicia Department: Room: Gender: Male Admissions Manager Rn: : 1985 Requested By: Talat Benson Order Number: [id number] Rosangela MD: Terri Moore M.D. Measurements Intervals [place] Rate: 76 P: 72 SC: 157 QRS: 67 QRSD: 106 T: 54 QT: 372 QTc: 420 Interpretive Statements SINUS RHYTHM Compared to ECG 09/06/2021 11:35:31 Sinus arrhythmia no longer present Intraventricular conduction delay no longer present Electronically Signed On 10-22-2021 22:23:38 CDT by Terri Moore M.D. [email or web address] [email or web address] pickerington methodist hospitalAsesorías Digitales [employer])/store/OM/[id number]
[2021-10-22 12:04] LABS: Free T4 Free Thyroxine 1.11 ng/dL (0.82-1.77); Thyroid Stimulating Hormone 2.87 uIU/mL (0.27-4.20)
[2021-10-22 12:22] LABS: Vitamin B12 472 pg/mL (232-1245)
[2021-10-22 12:32] LABS: Rapid Plasma Reagin Syphilis Nonreactive (Nonreactive)
[2021-10-22 12:57] LABS: Folate Level > 20.0 ng/mL (4.5-32.2)
[2021-10-22 14:14] VITALS: BP 157/95; PULSE 66; RESP 16; O2SAT 97
[2021-10-22 14:15] VITALS: BP 157/95; PULSE 67; RESP 16; O2SAT 98
[2021-10-22 14:26] LABS: Bilirubin Urine Neg (Negative); Blood Urine Neg (Negative); Glucose Urine UA Norm (Normal); Ketones Urine Negative (Negative); Leukocyte Esterase Urine Negative (Negative); Nitrate Urine Negative (Negative); Protein Urine Neg (Negative); Urine Appearance Clear (CLEAR); Urine Color Yellow (Yellow); Urobilinogen Urine Norm (Negative); pH Urine 6.5 (5-7)
[2021-10-22 14:33] LABS: Add Urine Culture? No; RBC Urine 0-4 /hpf (0-2)
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
[2021-10-22] MEDS: OLANZapine 5 mg TABLET PO (19:33)
[2021-10-22] MEDS: LORazepam 2 mg Tablet PO (19:37)
[2021-10-22 19:48] VITALS: BP 128/91; PULSE 80; RESP 16; O2SAT 96
[2021-10-23 03:30] VITALS: BP 138/82; PULSE 78; RESP 17; TEMP 36.9; O2SAT 97
[2021-10-23 07:30] VITALS: BP 128/74; PULSE 74; RESP 16; TEMP 37.1; O2SAT 97
[2021-10-23] MEDS: acetaminophen 500 mg Tablet PO (10:09)
[2021-10-23] MEDS: LORazepam 1 mg Tablet PO ×2 (10:09→22:22)
[2021-10-23] MEDS: LORazepam 2 mg Tablet PO (11:29)
[2021-10-23 11:30] VITALS: BP 150/88; PULSE 80; RESP 16; TEMP 37.1; O2SAT 97
[2021-10-23] MEDS: ziprasidone hcl 20 mg Capsule PO (11:30)
--- NOTE | 2021-10-23 13:07 | PC.NURSE ---
10:00 am Patient is awake and anxious regarding plan of care for admission vs discharge vs transfer. Patient updated on current plan of care. Patient becomes somewhat vocal regarding length of stay in ED. Patient informed and educated regarding committment to finding proper placement for him [place]. 1130 am Patient becoming loud in room wanting to know what is going on. He is yelling, not at anyone in particular. Physician notified and additional med orders obtained. Meds given and redirection is achieved, for the moment. 1300 patient now resting. Sitters in Line of site.1:1
[2021-10-23 17:00] VITALS: BP 160/90; PULSE 82; RESP 16; TEMP 37.1; O2SAT 98
[2021-10-23] MEDS: nicotine 21 mg Patch 1 PATCH TRANSDERMA (17:10)
--- NOTE | 2021-10-23 17:16 | PC.NURSE ---
0724-2057 Patient resting and cooperative. No aggression. Patient does ask for updates on plan of care, appropriately. Still waiting for definitive disposition. The combination of the ativan and geodon, last given seems to have helped with aggression/aggressive behaviors.
--- NOTE | 2021-10-23 18:03 | ECG_ITS ---
[facility] Test Date: 2021-10-23 Pat Name: Stephen Galicia Department: Room: Gender: Male Poultry Scalder: : 1985 Requested By: Zan Fuentes Order Number: [id number] Rosangela MD: Tracy Kaur M.D. Measurements Intervals [place] Rate: 104 P: 72 HI: 132 QRS: 69 QRSD: 104 T: 70 QT: 342 QTc: 451 Interpretive Statements SINUS TACHYCARDIA ABNORMAL RHYTHM ECG Compared to ECG 10/22/2021 12:08:32 Sinus rhythm no longer present Electronically Signed On 10-24-2021 5:48:54 CDT by Tracy Kaur M.D. [email or web address] hospital at stone countyWhat's in My Handbagselect medical specialty hospital - columbusBrittmore Group/store/OM/[id number]
--- NOTE | 2021-10-23 18:19 | W.PM.NPUPNS ---
Subjective NPU Subjective: Patient presents today frustrated that he did not understand how a 96-hour hold works and so explained to him that it did not begin until he got to a psychiatric unit. Discussed the fact that when he intentionally failed his interview with [facility] that he did not make himself closer to going home he just complicated the situation if worsens him to stay in this small room which he says is what is making him aggressive. Discussed speaking with parents because he feels much better and they would let him come home. We discussed that based on the activated level that they would respond how he wants. Mental Status Exam MSE Comments: This is an overweight versus obese white male in hospital scrubs with limited grooming and eye contact.? No abnormal movements except for psychomotor retardation.? Limited cooperation with exam in mild to moderate distress.? Speech is decreased rate and volume.? Mood described as I just need to go home, affect irritable. ? Thought process organized.? Thought content: Patient denies suicidal or homicidal ideations.? He denies delusions though he is guarded, he denies auditory and visual hallucinations.? Attention and concentration were intact and memory was mostly reliable, but limited, but none were formally tested.? He is alert and oriented x3.? Insight and judgment are impaired, impulse control is impaired. Vitals/I&O/Wt Last Vital Signs Temp 98.7 F 10/23/21 17:00 Pulse 82 10/23/21 17:00 Resp 16 10/23/21 17:00 BP 160/90 10/23/21 17:00 Pulse Ox 98 10/23/21 17:00 Data NPU : 10/19/21 19:54 10/19/21 19:54 A&P Assessment and plan (1) Acute psychosis: Status: Acute (2) Chronic schizophrenia: Status: Chronic Plan This is a 36-year-old white male with a long history of mental health issues with active addiction who presented to the emergency department after escalating aggressive acts at home here on a 96-hour hold with continued need for as needed medication awaiting placement in a psychiatric facility. 1.? Continue current medications including home medications.? 2.? Patient appropriate for inpatient hospitalization however cannot be excepted here due to father being a nurse on the unit. Involuntary Hold Information 96 Hour Hold: 96 Hour Involuntary Admission: Yes 96 Hour Hold Ending Date: 01/10/21 96 Hour Hold Ending Time: 00:01 Attestations NPU Medical Necessity Statement*: N/A.? Please see primary team note for medical necessity, however agree with need for continued inpatient psychiatric transfer. Coding Level of Care Code Acute Director Of Operations For Therapy for Demetrio Jacinto Diagnoses Acute psychosis F23 Chronic schizophrenia F20.9
--- NOTE | 2021-10-23 19:00 | PC.NURSE ---
183 Dr. Ceron at bedside discussing 96 hour hold protocol and attempt at education to patient for plan of care. Patient was informed he could talk to His family regarding possiblity of home safe plan , if agreed upon by all: family, patient and Dr. Ceron. Patient is informed that all parties must be in agreement for discharge plan for it to become a reality. Attempt at contacting both parents, in progress. Dr. Fuentes updated. 1899 Report to LIZ [place]. Patient stable and cooperative, at this moment.
[2021-10-23] MEDS: OLANZapine 5 mg TABLET PO (21:49)
[2021-10-23] MEDS: diphenhydrAMINE 25 mg Capsule PO (22:22)
[2021-10-24 01:00] VITALS: BP 136/83; PULSE 99; RESP 18; TEMP 37.2; O2SAT 95
--- NOTE | 2021-10-24 04:01 | PC.NURSE ---
10/23/2021-2145 patient given zyprexa. patient asking for possible medications to help with sleeping. provider notified. patinet in no obivous distress. patient resting comfortably in bed. safety checks done and sitter at bedside.
--- NOTE | 2021-10-24 04:02 | PC.NURSE ---
0000- patient sleeping comfortably in bed with even chest rise and fall noted upon assessment. safety checks done and sitter at bedside. side rails raised x 2 and bed in low, locked position. call light within reach.
--- NOTE | 2021-10-24 04:03 | PC.NURSE ---
0330- patient sleeping comfortably in bed at this time with even chest rise and fall noted. patient in no obivous distress. safety checks done and sitter at bedside. side rails raised x 2 and bed in low,l ocked position. call light within reach.
[2021-10-24 06:45] VITALS: BP 136/98; PULSE 65; RESP 18; O2SAT 95
--- NOTE | 2021-10-24 07:36 | PC.NURSE ---
Report received from LIZ Reddy. Pt resting in bed with eyes closed, resp even and unlabored with chest rise and fall. 1:1 sitter present within line of sight.
[2021-10-24] MEDS: ziprasidone hcl 20 mg Capsule PO (10:03)
[2021-10-24] MEDS: LORazepam 2 mg Tablet PO ×2 (10:40→22:35)
[2021-10-24] MEDS: diphenhydrAMINE 25 mg Capsule PO (10:40)
--- NOTE | 2021-10-24 13:38 | P.NPUPN_ITS ---
Subjective NPU Subjective: Patient presents today reporting that he has not been able to reach his parents because yesterday had busy signals with the room phone which raised concerns for whether or not they were actually going through. He endorsed certainty that they would allow him to go home if they could just be re ached. Discussed the need to have a safe plan and having continued concerns given the erratic behaviors he has displayed. Continued lack of insight for the hostile environments he is creating in his family homes. Mental Status Exam MSE Comments: This is an overweight versus obese white male in hospital scrubs with limited grooming and eye contact.? No abnormal movements except for psychomotor retardation.? Limited cooperation with exam in mild to moderate distress.? Speech is decreased rate and volume.? Mood described as I would be better if i were home, affect irritable. ? Thought process organized.? Thought content: Patient denies suicidal or homicidal ideations.? He denies delusions though he is guarded, he denies auditory and visual hallucinations.? Attention and concentration were intact and memory was mostly reliable, but limited, but none were formally tested.? He is alert and oriented x3.? Insight and judgment are impaired, impulse control is impaired. Vitals/I&O/Wt Last Vital Signs Temp 98.9 F 10/24/21 01:00 Pulse 65 10/24/21 06:45 Resp 18 10/24/21 06:45 BP 136/98 10/24/21 06:45 Pulse Ox 95 10/24/21 06:45 Data NPU : 10/19/21 19:54 10/19/21 19:54 A&P Assessment and plan (1) Acute psychosis: Status: Acute (2) Chronic schizophrenia: Status: Chronic Plan This is a 36-year-old white male with a long history of mental health issues with active addiction who presented to the emergency department after escalating aggressive acts at home here on a 96-hour hold with continued need for as needed medication awaiting placement in a psychiatric facility. 1.? Continue current medications including home medications.? 2.? Patient appropriate for inpatient hospitalization however cannot be excepted here due to father being a nurse on the unit. Involuntary Hold Information 96 Hour Hold: 96 Hour Involuntary Admission: Yes 96 Hour Hold Ending Date: 01/10/21 96 Hour Hold Ending Time: 00:01 Attestations NPU Medical Necessity Statement*: N/A.? Please see primary team note for medical necessity, however agree with need for continued inpatient psychiatric transfer. Coding Level of Care Code Acute Vocational School Teacher for Demetrio Fwd Diagnoses Acute psychosis F23 Chronic schizophrenia F20.9
[2021-10-24] MEDS: nicotine 21 mg Patch 1 PATCH TRANSDERMA (17:29)
--- NOTE | 2021-10-24 20:35 | PC.NURSE ---
received report. 36 yo male is on 96 hour hold for psychosis and aggressive behavior. He has h/o such and has not been taking his medications for several months. He became aggressive with his parents, of whom he lives with, and they called police and then brought in for evaluation. He is unable to be admitted in our facility due to his father working there. We are awaiting placement in another facility. He is quite anxious today due to finding out his 96 hour will not start until he goes to a psych facility and he has been here for 5 days. He is also anxious to be able to go outside or at least have a window to look out. We have made arrangements for him to shower in the sewing teacher. He is agreeable to this.
[2021-10-24] MEDS: OLANZapine 5 mg TABLET PO (21:55)
[2021-10-24] MEDS: diphenhydrAMINE 50 mg Capsule PO (22:34)
--- NOTE | 2021-10-25 05:18 | PC.NURSE ---
patient taken to shower with sitter and security and manager house.
[2021-10-25] MEDS: ziprasidone hcl 20 mg Capsule PO (08:39)
--- NOTE | 2021-10-25 08:40 | PC.NURSE ---
Patient resting in bed, patient did eat his breakfast. Patient took his morning medication. Patient calm and cooperative at this time. Sitter at bedside.
--- NOTE | 2021-10-25 10:18 | P.NPUPN_ITS ---
Subjective NPU Subjective: Patient presents today continuing to demonstrate limited insight into the reasons he continues to find himself in a situation with his parents. His father was present for the majority of the session and tried fairly adamantly to get him to understand the impact of his behavior in the home. His destructive nature and aggressiveness creating a hostile living situation at home many times. He was able to acknowledge after significant prodding that addiction does play a role in his situation however he really struggled to acknowledge drugs as the or a major problem. He continues to have limited options if he were to be discharged and continues to have limited options from the standpoint of facility considering him. Mental Status Exam MSE Comments: This is an overweight versus obese white male in hospital scrubs with limited grooming and eye contact.? No abnormal movements except for psyc homotor retardation.? Limited cooperation with exam in mild to moderate distress.? Speech is decreased rate and volume.? Mood described as I do not think I need to be here,affect irritable. ? Thought process organized.? Thought content: Patient denies suicidal or homicidal ideations.? He denies delusions though he is guarded, he denies auditory and visual hallucinations.? Attention and concentration were intact and memory was mostly reliable, but limited, but none were formally tested.? He is alert and oriented x3.? Insight and judgment are impaired, impulse control is impaired. Vitals/I&O/Wt Last Vital Signs Temp 98.9 F 10/24/21 01:00 Pulse 88 10/25/21 17:12 Resp 14 10/25/21 17:12 BP 125/100 10/25/21 17:12 Pulse Ox 96 10/25/21 17:12 Data NPU : 10/19/21 19:54 10/19/21 19:54 A&P Assessment and plan (1) Acute psychosis: Status: Acute (2) Chronic schizophrenia: Status: Chronic (3) Methamphetamine use disorder, severe: Status: Acute Plan This is a 36-year-old white male with a long history of mental health issues with active addiction who presented to the emergency department after escalating aggressive acts at home here on a 96-hour hold with continued need for as needed medication awaiting placement in a psychiatric facility. 1.? Continue current medications including home medications.? 2.? Patient appropriate for inpatient hospitalization however cannot be excepted here due to father being a nurse on the unit. Involuntary Hold Information 96 Hour Hold: 96 Hour Involuntary Admission: Yes 96 Hour Hold Ending Date: 01/10/21 96 Hour Hold Ending Time: 00:01 Attestations NPU Medical Necessity Statement*: N/A.? Please see primary team note for medical necessity, however agree with need for continued inpatient psychiatric transfer. Coding Level of Care Code Acute Upsetter Setter Up for Demetrio Jacinto Diagnoses Acute psychosis F23 Chronic schizophrenia F20.9 Methamphetamine use disorder, severe F15.20
--- NOTE | 2021-10-25 10:52 | PC.NURSE ---
Notified Dr. Anderson that patient requested something for anxiety and a nicotine patch.
[2021-10-25] MEDS: CLONazepam 0.5 mg Tablet PO ×2 (11:29→22:14)
[2021-10-25] MEDS: nicotine 21 mg Patch 1 PATCH TRANSDERMA (11:30)
[2021-10-25 12:14] LABS: Alcohol Level < 10 mg/dL (0-10)
--- NOTE | 2021-10-25 16:49 | PC.NURSE ---
Patient requested that this RN call his dad to get a book from home, this RN requested book from [facility] per verbal request from patient. [facility] unable to bring book up right now.
[2021-10-25 17:12] VITALS: BP 125/100; PULSE 88; RESP 14; O2SAT 96
--- NOTE | 2021-10-25 17:12 | PC.NURSE ---
Patient in bed, states his neck is sore from resting wrong. patient states that he has a 4/10 headache. Notified provider.
--- NOTE | 2021-10-25 17:21 | PC.NURSE ---
Addendum entered by Genesis Thayer RN 10/25/21 17:22: See scanned documents for paper document. Original Note: Permission to discuss was completed with this RN and patient. Patient gave permission to discuss with Kandi Galicia.
--- NOTE | 2021-10-25 17:58 | PC.NURSE ---
Patient requesting second dinner tray, informed that kitchen will not provide a second tray. offered a sack lunch, patient declined.
[2021-10-25] MEDS: OLANZapine 5 mg TABLET PO (21:46)
[2021-10-25] MEDS: lidocaine 5% Patch 1 PATCH TOPICAL (22:14)
[2021-10-26] MEDS: acetaminophen 500 mg Tablet 1000 MG PO (08:40)
--- NOTE | 2021-10-26 08:47 | PC.NURSE ---
Tylenol administered for c/o joint pain. Denies other requests at this time.
[2021-10-26] MEDS: ziprasidone hcl 20 mg Capsule PO (09:40)
[2021-10-26] MEDS: LORazepam 2 mg/mL INJ 1 mL IM (10:08)
--- NOTE | 2021-10-26 10:11 | W.ED.PSYCHS ---
HPI - Psych General: Chief Complaint: Psychiatric Symptoms Stated Complaint: MHE Time Seen by Provider: 10/19/21 19:32 Source: patient, family and police Mode of arrival: other (Police custody) History of Present Illness: . Relieving factors: medication PFS ED PFSH: Medical History Adjustment disorder with mixed disturbance of emotions and conduct Bipolar affect, depressed Bipolar disorder Chronic schizophrenia History of bipolar disorder Psychiatric care Schizophrenia Surgical History No history of previous surgery Social History Smoking and tobacco status: current every day smoker Alcohol intake: current Face to Face: Restrn/Seclusion Events leading up to initiation: Verbalizing threat to self or others and Combative/Striking out at staff or others Evaluation of patient's immediate situation: Alert and oriented and No signs of physical distress Recent labs reviewed: Yes Review of medications: Yes Attending notified: Yes Course Reevaluation(s): Reevaluation #1: Patient became increasingly combative was trying to leave he became physical as well had to place him in a restraint bed and chemically restrain him with ketamine at this time Time: 10:12 Vital Signs: Vital signs: Vital Signs Temperature 98.9 F 10/24/21 01:00 Pulse Rate 101 H 10/26/21 14:57 Respiratory Rate 18 10/26/21 14:57 Blood Pressure 176/80 10/26/21 14:57 Pulse Oximetry 96 10/26/21 14:57 MDM - Psych Medical Decision Making Patient has been cooperative after ketamine was able to remove him from the physical restraints and he has been sitting in his room awake and alert and cooperative currently. Patient was accepted to [facility] and will transfer there patient's medically cleared. Lab Data : 10/19/21 19:54 10/19/21 19:54 Laboratory Results WBC 6.2 10^3/uL (4.0-10.0) 10/19/21 19:54 RBC 4.37 10^6/uL (4.1-5.3) 10/19/21 19:54 Hgb 14.0 g/dL (11.7-16.6) 10/19/21 19:54 Hct 40.0 % (42.0-52.0) L 10/19/21 19:54 MCV 91.5 fl (80-94) 10/19/21 19:54 MCH 32.0 pg (28.0-34.0) 10/19/21 19:54 MCHC 35.0 g/dL (30.0-36.0) 10/19/21 19:54 RDW 12.0 % (12.1-15.1) L 10/19/21 19:54 Plt Count 260 10^3/cmm (130-400) 10/19/21 19:54 MPV 10.2 fL (7.4-10.4) 10/19/21 19:54 Neut % (Auto) 58.0 % 10/19/21 19:54 Lymph % (Auto) 30.7 % 10/19/21 19:54 [place] % (Auto) 7.5 % 10/19/21 19:54 Eos % (Auto) 3.2 % 10/19/21 19:54 Baso % (Auto) 0.3 % 10/19/21 19:54 Neut # (Auto) 3.57 10^3/uL (1.8-7.7) 10/19/21 19:54 Lymph # (Auto) 1.9 10^3/uL (0.8-4.8) 10/19/21 19:54 [place] # (Auto) 0.5 10^3/uL (0.2-0.9) 10/19/21 19:54 Eos # (Auto) 0.2 10^3/uL (0.0-0.8) 10/19/21 19:54 Baso # (Auto) 0.0 10^3/uL (0.0-0.1) 10/19/21 19:54 Nucleated RBC % (auto) 0 % 10/19/21 19:54 Nucleated RBCs # 0.0 /100WBC 10/19/21 19:54 Sodium 137 mmol/L (136-145) 10/19/21 19:54 Potassium 3.9 mmol/L (3.5-5.1) 10/19/21 19:54 Chloride 103 mmol/L (98-107) 10/19/21 19:54 Carbon Dioxide 24 mmol/L (22-29) 10/19/21 19:54 Anion Gap 13.9 (5-19) 10/19/21 19:54 BUN 13 mg/dL (6-20) 10/19/21 19:54 Creatinine 0.6 mg/dL (0.7-1.2) L 10/19/21 19:54 GFR Calculation 154.2 mL/min (90-130) H 10/19/21 19:54 Glucose 101 mg/dL (65-115) 10/19/21 19:54 Calculated Osmolality 284 mOsm/kg (285-295) L 10/19/21 19:54 Calcium 9.4 mg/dL (8.5-10.5) 10/19/21 19:54 Total Bilirubin 0.5 mg/dL (0.15-1.2) 10/19/21 19:54 AST 49 U/L (0-40) H 10/19/21 19:54 ALT 40 U/L (0-41) 10/19/21 19:54 Alkaline Phosphatase 89 IU/L (40-130) 10/19/21 19:54 Total Protein 7.7 g/dL (6.6-8.7) 10/19/21 19:54 Albumin 4.8 g/dL (3.5-5.2) 10/19/21 19:54 Globulin 2.9 g/dL (1.3-4.6) 10/19/21 19:54 Vitamin B12 472 pg/mL (232-1245) 10/19/21 19:54 Folate > 20.0 ng/mL (4.5-32.2) 10/19/21 19:54 TSH 2.87 uIU/mL (0.27-4.20) 10/19/21 19:54 Free T4 1.11 ng/dL (0.82-1.77) 10/19/21 19:54 Urine Color Yellow (Yellow) 10/22/21 14:12 Urine Appearance Clear (CLEAR) 10/22/21 14:12 Urine pH 6.5 (5-7) 10/22/21 14:12 Ur Specific [place] 1.010 (1.005-1.030) 10/22/21 14:12 Urine Protein Neg (Negative) 10/22/21 14:12 Urine Glucose (UA) Norm (Normal) 10/22/21 14:12 Urine Ketones Negative (Negative) 10/22/21 14:12 Urine Blood Neg (Negative) 10/22/21 14:12 Urine Nitrate Negative (Negative) 10/22/21 14:12 Urine Bilirubin Neg (Negative) 10/22/21 14:12 Urine Urobilinogen Norm mg/dL (Negative) 10/22/21 14:12 Ur Leukocyte Esterase Negative (Negative) 10/22/21 14:12 Urine RBC 0-4 /hpf (0-2) H 10/22/21 14:12 Urine WBC None /hpf (0-5) 10/22/21 14:12 Ur Squamous Epith Cells None /hpf (0-5) 10/22/21 14:12 Amorphous Sediment Not Reportable 10/22/21 14:12 Urine Bacteria None /hpf (NONE) 10/22/21 14:12 Salicylates < 0.3 mg/dL (3-10) L 10/19/21 19:54 Urine Opiates Screen Negative ng/mL (Negative) 10/19/21 22:04 Acetaminophen < 5.0 ug/mL (10-30) L 10/19/21 19:54 Ur Barbiturates Screen Negative ng/mL (Negative) 10/19/21 22:04 Ur Phencyclidine Scrn Negative ng/mL (Negative) 10/19/21 22:04 Ur Amphetamines Screen Positive ng/mL (Negative) H 10/19/21 22:04 U Benzodiazepines Scrn Negative ng/mL (Negative) 10/19/21 22:04 [place] 0.1 mmol/L (0.6-1.2) L 10/19/21 19:54 Urine Cocaine Screen Negative ng/mL (Negative) 10/19/21 22:04 U Marijuana (THC) Screen Negative ng/mL (Negative) 10/19/21 22:04 Ethyl Alcohol < 10 mg/dL (0-10) 10/25/21 11:20 RPR Nonreactive (Nonreactive) 10/19/21 19:54 Coronavirus 229E (PCR) Not detected (NOT DETECT) 10/19/21 19:59 SARS-CoV-2 (PCR) Not detected (NOT DETECT) 10/19/21 19:59 Discharge Plan Discharge Patient Disposition: Xfer Short-Term Hosp Clinical Impression: Chronic schizophrenia, Acute psychosis, Behavior disorder Condition: Stable Coding Level of Care Code ED Practicing Dermatologist for Demetrio Jacinto
[2021-10-26 10:26] VITALS: BP 193/99; PULSE 169; RESP 18; O2SAT 100
--- NOTE | 2021-10-26 10:35 | PC.NURSE ---
Became violent w staff, attempting to leave unit. Required 6 people to restrain for his & staff's protection. Currently in 4 point restraint, has had multiple PRN meds (see mar) & continues to call out. Has 1:1 sitter, nolanq VS & continuous pulse-ox for safety.
[2021-10-26 10:43] VITALS: BP 158/105; PULSE 137; RESP 18; O2SAT 99
--- NOTE | 2021-10-26 11:10 | PC.NURSE ---
Restraints removed, pt is calm & cooperative. VSS, denies needs. States he wants to be cooperative.
[2021-10-26 12:56] VITALS: BP 109/76; PULSE 99; RESP 18; O2SAT 99
--- NOTE | 2021-10-26 13:41 | PC.NURSE ---
Woke up & wanted to go outside for a cigarette, but he was easily re-directed & is now sleeping. VSS.
[2021-10-26 14:57] VITALS: BP 176/80; PULSE 101; RESP 18; O2SAT 96
[2021-10-26] MEDS: LORazepam 2 mg Tablet PO (15:46)
[2021-10-26] MEDS: nicotine 21 mg Patch 1 PATCH TRANSDERMA (15:46)
[2021-10-26 16:57] VITALS: BP 132/85; PULSE 82; RESP 18; TEMP 36.8; O2SAT 96
== END 2021-10-26 18:41 | disposition short-term general hospital (02) ==
PROVIDERS: Emergency Medicine; Family Medicine; Emergency Provider Emergency Medicine
DX: F23 Brief psychotic disorder (principal); F20.9 Schizophrenia, unspecified; F15.20 Other stimulant dependence, uncomplicated
CPT/HCPCS: 36415; 80053; 80178; 80306; 80307; 81001; 82607; 82746; 84439; 84443; 85025; 86592; 87635; 93005; 96372; J2060; J3486; J3490; Q0163

== ENCOUNTER 2021-11-05 08:17 | Emergency (ER) | payer BC, MEDICAID, SELFPAY ==
[2021-11-05] VITALS (13 sets, daily range): BP systolic 118–178; BP diastolic 17–98; PULSE 70–111; RESP 14–20; O2SAT 96–100
[2021-11-05] MEDS: LORazepam 2 mg/mL INJ 1 mL IM ×2 (08:51→19:24)
[2021-11-05] MEDS: ziprasidone 20 mg/mL SDV IM ×2 (08:51→19:24)
[2021-11-05] MEDS: diphenhydrAMINE 50 mg/mL SDV 1mL IM ×2 (08:51→19:24)
--- NOTE | 2021-11-05 08:52 | PC.NURSE ---
Pt placed in 4-point restraint bed due to aggressive behavior, at risk of harming self and staff. Verbal deescalation unsuccessful. Medications ordered by Dr Anderson were given, pt tolerated well.
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
[2021-11-05 10:13] LABS: Basophils % 0.5 %; Eosinophils # 0.1 10^3/uL (0.0-0.8); Eosinophils % 1.9 %; Hematocrit 34.3 % (42.0-52.0); Hemoglobin 11.9 g/dL (11.7-16.6); Lymphocytes # 1.1 10^3/uL (0.8-4.8); Lymphocytes % 17.7 %; Mean Corpuscular HGB Conc 34.7 g/dL (30.0-36.0); Mean Corpuscular Hemoglobin 32.1 pg (28.0-34.0); Mean Corpuscular Volume 92.5 fl (80-94); Mean Platelet Volume 10.6 fL (7.4-10.4); Monocytes # 0.4 10^3/uL (0.2-0.9); Monocytes % 6.1 %; Neutrophils # 4.61 10^3/uL (1.8-7.7); Neutrophils % 73.5 %; Nucleated Red Blood Cells % 0 %; Platelet Count 175 10^3/cmm (130-400); Red Blood Count 3.71 10^6/uL (4.1-5.3); Red Cell Distribution Width 11.9 % (12.1-15.1); White Blood Count 6.3 10^3/uL (4.0-10.0)
[2021-11-05 10:30] LABS: Alanine Aminotransferase 26 U/L (0-41); Albumin Level 4.1 g/dL (3.5-5.2); Alkaline Phosphatase 75 IU/L (40-130); Anion Gap 12.8 (5-19); Aspartate Amino Transferase 41 U/L (0-40); Blood Urea Nitrogen 14 mg/dL (6-20); Calcium 8.9 mg/dL (8.5-10.5); Carbon Dioxide 25 mmol/L (22-29); Chloride 104 mmol/L (98-107); Globulin 2.5 g/dL (1.3-4.6); Glomerular Filtration Rate 129.1 mL/min (90-130); Glucose 107 mg/dL (65-115); Osmolality Calculated 287 mOsm/kg (285-295); Potassium 3.8 mmol/L (3.5-5.1); Sodium 138 mmol/L (136-145); Total Bilirubin 0.6 mg/dL (0.15-1.2); Total Protein 6.6 g/dL (6.6-8.7)
[2021-11-05 10:31] LABS: Acetaminophen < 5.0 ug/mL (10-30); Salicylate < 0.3 mg/dL (3-10)
[2021-11-05 11:27] LABS: Alcohol Level < 10 mg/dL (0-10)
--- NOTE | 2021-11-05 11:34 | ECG_ITS ---
[facility] Test Date: 2021-11-05 Pat Name: Stephen Galicia Department: Room: Gender: Male Material Controller: : 1985 Requested By: Talat Benson Order Number: [id number] Rosangela MD: Castro Ernst M.D. Measurements Intervals [place] Rate: 56 P: 31 TN: 157 QRS: 44 QRSD: 114 T: 37 QT: 421 QTc: 406 Interpretive Statements SINUS BRADYCARDIA MODERATE INTRAVENTRICULAR CONDUCTION DELAY [105+ ms QRS DURATION, 80+ ms Q/S IN V1/V2, NO Q AND 60+ ms R IN I/aVL/V5/V6] Compared to ECG 10/23/2021 17:38:43 Intraventricular conduction delay now present Sinus tachycardia no longer present Electronically Signed On 11-05-2021 15:16:40 CDT by Castro Ernst M.D. [id number]
--- NOTE | 2021-11-05 11:34 | XR_ITS ---
WS: [id number] PORTABLE CHEST HISTORY: dyspnea/cough COMPARISON: 01/04/2021 Very slight lucency at the RIGHT apex is similar to the prior study. The lack of vessels at the RIGHT apex. No pleural effusion or pneumothorax. Cardiac size: Normal. Mediastinum/Aorta: Normal mediastinum. No osseous abnormality seen. XR/XR chest 1V portable [id number] IMPRESSION: Stable chest radiograph since 01/04/2021. No acute findings.
[2021-11-05 12:09] LABS: Thyroid Stimulating Hormone 2.78 uIU/mL (0.27-4.20)
[2021-11-05 14:13] LABS: Adenovirus Not Detected (NOT DETECT); Chlamydia Pneumoniae Not Detected (NOT DETECT); Coronavirus 229E,HKU1,NL63,OC4 Not Detected (NOT DETECT); Human Metapneumovirus Not Detected (NOT DETECT); Human Rhinovirus/Enterovirus Not Detected (NOT DETECT); Influenza A Not Detected (NOT DETECT); Influenza A H1 Not Detected (NOT DETECT); Influenza A H1-2009 Not Detected (NOT DETECT); Influenza A H3 Not Detected (NOT DETECT); Influenza B Not Detected (NOT DETECT); Mycoplasma Pneumoniae Not Detected (NOT DETECT); Parainfluenza Virus Type 1 Not Detected (NOT DETECT); Parainfluenza Virus Type 2 Not Detected (NOT DETECT); Parainfluenza Virus Type 3 Not Detected (NOT DETECT); Parainfluenza Virus Type 4 Not Detected (NOT DETECT); Respiratory Syncytial Virus A Not Detected (NOT DETECT); Respiratory Syncytial Virus B Not Detected (NOT DETECT); SARS-COV-2 Not Detected (NOT DETECT)
[2021-11-06 07:00] VITALS: RESP 16
--- NOTE | 2021-11-06 07:07 | PC.NURSE ---
Report received from LIZ Clarke. Pt resting in bed, resp even and unlabored. 1:1 sitter present within line of sight. Care assumed.
[2021-11-06] MEDS: diphenhydrAMINE 50 mg/mL SDV 1mL IM (07:52)
[2021-11-06] MEDS: LORazepam 2 mg/mL INJ 1 mL IM (07:52)
[2021-11-06] MEDS: ziprasidone 20 mg/mL SDV IM (07:52)
--- NOTE | 2021-11-06 11:09 | PC.NURSE ---
Pt currently cooperative, restraints fully removed [id number].
--- NOTE | 2021-11-06 13:29 | PC.NURSE ---
Contacted by Justin and placement was denied.
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
[2021-11-06] MEDS: ziprasidone 20 mg/mL SDV (16:14)
[2021-11-06] MEDS: LORazepam 2 mg/mL INJ 1 mL (16:21)
[2021-11-06] MEDS: diphenhydrAMINE 50 mg/mL SDV 1mL (16:21)
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
[2021-11-06 20:45] VITALS: BP 120/92; PULSE 93; RESP 18; TEMP 36.9; O2SAT 97
[2021-11-07 04:39] LABS: Add Urine Culture? No; Add Urine Microscopic? YES; Amorphous Sediment Urine 2+ /hpf; Bacteria Urine TRACE /hpf; Bilirubin Urine Neg (Negative); Blood Urine 2+ (Negative); Glucose Urine UA Norm (Normal); Ketones Urine Negative (Negative); Leukocyte Esterase Urine Negative (Negative); Nitrate Urine Negative (Negative); Protein Urine Neg (Negative); RBC Urine 0-4 /hpf (0-2); Sperm Urine 1+ /hpf; Squamous Epithelial Cell Urine 0-4 /hpf (0-5); Urine Appearance Clear (CLEAR); Urine Color Yellow (Yellow); Urobilinogen Urine 1 mg/dL (Negative); WBC Urine 0-4 /hpf (0-5); pH Urine 6 (5-7)
[2021-11-07 04:41] LABS: Amphetamines Screen Urine Positive (Negative); Barbiturates Screen Urine Negative (Negative); Benzodiazepines Screen Urine Positive (Negative); Cocaine Screen Urine Negative (Negative); Opiate Screen Urine Negative (Negative); PCP Screen Urine Negative (Negative); THC Screen Urine Negative (Negative)
[2021-11-07] MEDS: LORazepam 2 mg/mL INJ 1 mL IM ×2 (04:43→17:08)
[2021-11-07] MEDS: ziprasidone 20 mg/mL SDV IM (04:43)
[2021-11-07] MEDS: nicotine 14 mg Patch 1 PATCH TRANSDERMA (05:55)
--- NOTE | 2021-11-07 08:54 | PC.SOCIAL ---
KISHORE Wooten called all facilities within 4hours; most do not have beds available. Kaialsh at [facility] to fax paperwork and they will likely take him this afternoon after discharges. Updated Val in ER.
[2021-11-07] MEDS: OLANZapine 10 mg ODT PO (11:11)
--- NOTE | 2021-11-07 15:02 | P.NPUPN_ITS ---
Subjective NPU Subjective: Patient presents today reporting that he is doing okay. He is aware that the [facility] is a possible inpatient and he is ok with that. He was open to speaking to the [facility] outreach therapist that was in the ED and was able to speak reasonably with her. Mental Status Exam MSE Comments: This is an overweight versus obese white male in hospital scrubs with limited grooming and eye contact.? No abnormal movements except for psychomotor retardation.? Limited cooperation with exam in mild to moderate distress.? Speech is decreased rate and volume.? Mood described as fine, affect irritable. ? Thought process organized.? Thought content: Patient denies suicidal or homicidal ideations.? He denies delusions though he is guarded and has delusional believes, he denies auditory and visual hallucinations.? Attention and concentration were intact and memory was mostly reliable, but limited, but none were formally tested.? He is alert and oriented x3.? Insight and judgment are impaired, impulse control is impaired. Vitals/I&O/Wt Last Vital Signs Temp 98.4 F 11/06/21 20:45 Pulse 93 11/06/21 20:45 Resp 18 11/06/21 20:45 BP 120/92 11/06/21 20:45 Pulse Ox 97 11/06/21 20:45 Data NPU : 11/05/21 10:05 11/05/21 10:05 A&P Assessment and plan (1) Methamphetamine use disorder, severe: Status: Acute (2) Chronic schizophrenia: Status: Chronic Plan This is a 36-year-old white male with a long history of mental health issues with active addiction who presented to the emergency department after escalating aggressive acts at home here on a 96-hour hold with continued need for as needed medication awaiting placement in a psychiatric facility. 1.? Continue current medications including home medications.? 2.? Patient appropriate for inpatient hospitalization however cannot be excepted here due to father being a nurse on the unit.? 3. Recommend Zyprexa zydis 10 mg for oral and 10 mg IM zyprexa for agitation. Involuntary Hold Information 96 Hour Hold: 96 Hour Involuntary Admission: Yes 96 Hour Hold Ending Date: 01/10/21 96 Hour Hold Ending Time: 00:01 Attestations NPU Medical Necessity Statement*: N/A.? Please see primary team note for medical necessity, however agree with need for continued inpatient psychiatric transfer. Coding Level of Care Code Acute Retreader for Chg Fwd Diagnoses Methamphetamine use disorder, severe F15.20 Chronic schizophrenia F20.9
== END 2021-11-07 18:04 ==
PROVIDERS: Emergency Medicine; Emergency Provider Family Medicine
DX: R41.82 Altered mental status, unspecified (principal); F17.210 Nicotine dependence, cigarettes, uncomplicated; Z20.822 Contact with and (suspected) exposure to COVID-19
CPT/HCPCS: 71045; 80053; 80306; 80307; 81001; 84443; 85025; 87635; 93005; 96372; 99285; J1200; J2060; J3486

== ENCOUNTER → 2024-03-07 14:18 | Outpatient (BNVA) | payer BC, MEDICAID, SELFPAY | DX: E03.9 Hypothyroidism, unspecified (principal) | CPT/HCPCS: 80053; 84439; 84443 ==

== ENCOUNTER → 2024-10-05 13:34 | Outpatient (BNVA) | payer BC, SELFPAY | DX: E03.9 Hypothyroidism, unspecified (principal); Z76.89 Persons encountering health services in other specified circumstances | CPT/HCPCS: 83036; 84439; 84443 ==